=== PATIENT | female | born 1960 | race Hispanic/Latino ===

== ENCOUNTER 2016-12-31 12:17 | Emergency (ER) | payer MEDICAID ==
[2016-12-31 12:28] VITALS: BP 122/75; PULSE 65; RESP 18; TEMP 99.1; O2SAT 100
[2016-12-31] MEDS ORDERED: Sodium Chloride 0.9% 1,000 ML IV STA (12:43)
--- NOTE | 2016-12-31 13:22 | ED PDOC ---
HPI: Abdomen Time Seen by Provider: 12/31/16 12:43 Chief Complaint (Nursing): Abdominal Pain Chief Complaint (Provider): abd pain History Per: Patient History/Exam Limitations: no limitations Associated Symptoms: Loss Of Appetite, Back Pain. denies: Chest Pain Additional Complaint(s): 56yo F in ED for eval of RUQ/LUQ and epigastric pain with radiation to the back with associated nausea without vomiting and chills since this AM. no change in BM no fever no rash no surgical hx: hysterectomy. Abnormal Vaginal Bleeding: No Past Medical History Reviewed: Historical Data, Nursing Documentation, Vital Signs Vital Signs: Last Vital Signs Temp 99.1 F 12/31/16 12:26 Pulse 65 12/31/16 12:26 Resp 18 12/31/16 12:26 BP 122/75 12/31/16 12:26 Pulse Ox 100 12/31/16 13:25 - Medical History PMH: HTN, Hypercholesterolemia - Family History Family History: States: Unknown Family Hx - Immunization History Hx Influenza Vaccination: (unsure) Hx Pneumococcal Vaccination: (unsure) - Home Medications Home Medications: Ambulatory Orders Medication Instructions Recorded Famotidine [Pepcid] 20 mg PO BID #16 tab 12/31/16 - Allergies Allergies/Adverse Reactions: Allergies Allergy/AdvReac Type Severity Reaction Status Date / Time No Known Allergies Allergy Verified 08/18/15 23:23 Review of Systems ROS Statement: Except As Marked, All Systems Reviewed And Found Negative Constitutional: Positive for: Chills, Malaise. Negative for: Fever Gastrointestinal: Positive for: Nausea, Abdominal Pain. Negative for: Vomiting , Diarrhea Physical Exam - Reviewed Nursing Documentation Reviewed: Yes Vital Signs Reviewed: Yes - Physical Exam Appears: Positive for: Well, Non-toxic, No Acute Distress Head Exam: Positive for: ATRAUMATIC, NORMAL INSPECTION, NORMOCEPHALIC Skin: Positive for: Normal Color, Warm, DRY Eye Exam: Positive for: Normal appearance, EOMI, PERRL Cardiovascular/Chest: Positive for: Regular Rate, Rhythm Respiratory: Positive for: CNT, Normal Breath Sounds Gastrointestinal/Abdominal: Positive for: Normal Exam, Bowel Sounds, Soft, Tenderness (RUQ tenderness, epigastric tenderness and LUQ tenderness-band like.) Back: Positive for: Normal Inspection Extremity: Positive for: Normal ROM Neurologic/Psych: Positive for: Alert, Oriented - Laboratory Results Result Diagrams: 12/31/16 13:19 12/31/16 13:19 - ECG O2 Sat by Pulse Oximetry: 100 - Other Rad US RUQ X-Ray: Read By Radiologist (NAD) - CT Scan/US CT Other Rad Studies (CT/US): Radiology Report Reviewed (NAD) - Progress ED Course And Treament: r/o cholecysitis/pancreatitis. Orders Category Date Time Status COMP METABOLIC PANEL Stat Chem 12/31/16 12:55 Ordered LIPASE Stat Chem 12/31/16 12:55 Ordered CBC (WITH DIFFERENTIAL) Stat WEST 12/31/16 12:55 Ordered Ketorolac [Toradol] Med 12/31/16 13:05 Discontinued 30 mg .ROUTE .STK-MED ONE Ketorolac [Toradol] Med 12/31/16 12:43 Discontinued 30 mg IVP STAT STA Ondansetron [Zofran Inj] Med 12/31/16 13:05 Discontinued 4 mg .ROUTE .STK-MED ONE Ondansetron [Zofran Inj] Med 12/31/16 12:43 Discontinued 4 mg IVP STAT STA Sodium Chloride 0.9% 1,000 ml Med 12/31/16 12:43 Active IV 1,000 mls/hr BLOOD CULTURE Stat Micro 12/31/16 12:55 Ordered ABDOMEN LIMITED [US] Stat US 12/31/16 12:43 Ordered Medical Decision Making Medical Decision Making: dx: gastritis no significant findings on CT scan and US. PT with slightly elevated liver enzymes. PT pain has improved while in ED. pt will be advised to f.u with GI and d/c with Rx for pepcid for epigastric pain. Trop. is negative EKG reviewed by MD oliva Disposition - Clinical Impression Clinical Impression: Abdominal tenderness, Gastritis - Patient ED Disposition Is Patient to be Admitted: No Counseled Patient/Family Regarding: Studies Performed, Diagnosis, Need For Followup, Rx Given - Disposition Referrals: [facility] [Outside] [facility] [Outside] Disposition: Routine/Home Disposition Time: 16:13 Condition: STABLE Prescriptions: Famotidine [Pepcid] 20 mg PO BID #16 tab Instructions: Gastritis (ED) Print Language: TUNISIAN
[2016-12-31 13:39] LABS: BASO % 0.4 % (0.0-2.0); EOS # 0.1 K/uL (0.0-0.7); EOS % 0.5 % (0.0-4.0); HEMATOCRIT 41.5 % (34.0-47.0); LYMPH # 1.2 K/uL (1.0-4.3); LYMPH % 11.5 % (20.0-40.0); MEAN CELL VOLUME 90.1 fl (81.0-99.0); MEAN CORPUSCULAR HEMOGLOBIN 29.9 pg (27.0-31.0); MEAN CORPUSCULAR HGB CONC 33.2 g/dL (33.0-37.0); MEAN PLATELET VOLUME 9.3 fl (7.2-11.7); MONO # 0.3 K/uL (0.0-0.8); MONO % 3.1 % (0.0-10.0); NEUT # 9.1 K/uL (1.8-7.0); NEUT % 84.5 % (50.0-75.0); NRBC % 0.1 % (0.0-0.0); RED CELL DISTRIBUTION WIDTH 12.5 % (11.5-14.5); WHITE BLOOD COUNT 10.8 K/uL (4.8-10.8)
[2016-12-31 13:57] LABS: ALB/GLOB RATIO 1.3 (1.0-2.1); ALKALINE PHOSPHATASE 118 U/L (38-126); ALT/SGPT 66 U/L (9-52); AST/SGOT 102 U/L (14-36); BILIRUBIN,TOTAL 0.5 mg/dl (0.2-1.3); BLOOD UREA NITROGEN 17 mg/dl (7-17); CALCIUM 9.7 mg/dL (8.4-10.2); CARBON DIOXIDE 28 mmol/L (22-30); CHLORIDE 105 mmol/L (98-107); GFR AFRICAN-AMERICAN > 60; GLUCOSE,RANDOM 96 mg/dL (65-105); LIPASE 65 U/L (23-300); POTASSIUM 4.4 MMOL/L (3.6-5.0); SODIUM 142 mmol/l (132-148); TOTAL PROTEIN 8.1 G/DL (6.3-8.2)
--- NOTE | 2016-12-31 14:08 | US ---
HISTORY: RUQ pain with radiation to back COMPARISON: Correlation is made to CT scan of the abdomen and pelvis dated 02/28/2010. TECHNIQUE: Sonographic evaluation of the right upper quadrant of the abdomen. FINDINGS: LIVER: Measures 14.4 cm in length. Normal echogenicity of the liver parenchyma. No mass. No intrahepatic bile duct dilatation. GALLBLADDER: Unremarkable. No gallstones. COMMON BILE DUCT: Measures 3 mm. No stones. No dilatation. PANCREAS: Unremarkable as visualized. No mass. No ductal dilatation. RIGHT KIDNEY: Measures 8.0 x 4.1 x 4.3 cm in length. Normal echogenicity. No calculus, mass, or hydronephrosis. AORTA: No aneurysmal dilatation. IVC: Unremarkable. OTHER FINDINGS: None . IMPRESSION: Unremarkable right upper quadrant ultrasound.
[2016-12-31] MEDS ORDERED: Iohexol 300 100 ML IJ ONE (15:12)
[2016-12-31] MEDS ORDERED: Sodium Chloride 0.9% 50 ML IV ONE (15:12)
--- NOTE | 2016-12-31 15:52 | CT ---
PROCEDURE: CT Abdomen and Pelvis with contrast HISTORY: pt with persistent abd band like pain COMPARISON: CT scan of the abdomen pelvis dated 02/28/2010 TECHNIQUE: Contrast dose: 95 mL Omnipaque 300 Radiation dose: Total exam DLP = 817.9 mGy-cm. This CT exam was performed using one or more of the following dose reduction techniques: Automated exposure control, adjustment of the mA and/or kV according to patient size, and/or use of iterative reconstruction technique. FINDINGS: LOWER THORAX: Cardiomegaly. Bibasilar dependent atelectasis. LIVER: Unremarkable. No gross lesion or ductal dilatation. GALLBLADDER AND BILE DUCTS: Unremarkable. PANCREAS: Unremarkable. No gross lesion or ductal dilatation. SPLEEN: Unremarkable. ADRENALS: Unremarkable. No mass. KIDNEYS AND URETERS: Unremarkable. No hydronephrosis. No solid mass. VASCULATURE: Unremarkable. No aortic aneurysm. BOWEL: Colonic diverticulosis without diverticulitis. No obstruction. No gross mural thickening. APPENDIX: Normal appendix. PERITONEUM: Unremarkable. No free fluid. No free air. LYMPH NODES: Unremarkable. No enlarged lymph nodes. BLADDER: Unremarkable. REPRODUCTIVE: Uterus and bilateral adnexa not visualized. BONES: Pelvic degenerative changes. No acute fracture. OTHER FINDINGS: None. IMPRESSION: No acute abdominopelvic pathology.
--- NOTE | 2017-01-01 12:50 | CARD ---
APPROVED REPORT EKG Measurement Heart [id number] IN [id number] <Conclusion> Normal sinus rhythm Possible Left atrial enlargement Nonspecific ST and T wave abnormality Abnormal ECG
== END 2016-12-31 16:35 | disposition home or self-care (01) ==
LOC: H.ER 12:17
DX: K29.70 Gastritis, unspecified, without bleeding (principal); E78.00 Pure hypercholesterolemia, unspecified; I10 Essential (primary) hypertension
CPT/HCPCS: 74177; 76705; 80053; 83690; 85025; 87040; 93005; 96361; 96374; 96375; 99283; J1885; J2405; J7040; Q9967

== ENCOUNTER 2017-01-07 20:23 | Inpatient (IN) | payer MEDICAID ==
[2017-01-07] MEDS ORDERED: Morphine 4 MG/ML VIAL IVP STA (21:18)
[2017-01-07] MEDS ORDERED: DiphenhydrAMINE 50 mg/ml Inj IVP STA (21:18)
[2017-01-07] MEDS ORDERED: Sodium Chloride 0.9% 1,000 ML IV STA (21:18)
[2017-01-07] MEDS ORDERED: Morphine 4 MG/ML VIAL ONE (21:28)
[2017-01-07] MEDS ORDERED: DiphenhydrAMINE 50 mg/ml Inj ONE (21:28)
[2017-01-07 21:34] LABS: VENOUS BLOOD GAS BASE EXCESS -4.9 mmol/L (0.0-2.0); VENOUS BLOOD GAS PCO2 71 mmHg (40-60); VENOUS BLOOD PH 7.16 (7.32-7.43)
[2017-01-07] MEDS ORDERED: Iohexol 240 (50 ml) ONE (21:40)
[2017-01-07] MEDS: Iohexol 240 (50 ml) PO STA ×2 (21:43→22:30)
[2017-01-07 21:52] LABS: BASO % 0.5 % (0.0-2.0); EOS % 0.4 % (0.0-4.0); HEMATOCRIT 41.8 % (34.0-47.0); LYMPH # 0.9 K/uL (1.0-4.3); LYMPH % 9.1 % (20.0-40.0); MEAN CELL VOLUME 90.3 fl (81.0-99.0); MEAN CORPUSCULAR HGB CONC 33.2 g/dL (33.0-37.0); MEAN PLATELET VOLUME 9.8 fl (7.2-11.7); MONO # 0.4 K/uL (0.0-0.8); MONO % 4.6 % (0.0-10.0); NEUT # 8.1 K/uL (1.8-7.0); NEUT % 85.4 % (50.0-75.0); PLATELET COUNT 198 K/uL (130-400); RED CELL DISTRIBUTION WIDTH 13.1 % (11.5-14.5); WHITE BLOOD COUNT 9.5 K/uL (4.8-10.8)
[2017-01-07 22:01] LABS: PARTIAL THROMBOPLASTIN TIME 29.3 Seconds (25.6-37.1)
[2017-01-07 22:11] LABS: ALB/GLOB RATIO 1.3 (1.0-2.1); ALKALINE PHOSPHATASE 466 U/L (38-126); ALT/SGPT 648 U/L (9-52); AST/SGOT 671 U/L (14-36); BILIRUBIN,TOTAL 2.5 mg/dl (0.2-1.3); BLOOD UREA NITROGEN 12 mg/dl (7-17); CALCIUM 9.7 mg/dL (8.4-10.2); CARBON DIOXIDE 28 mmol/L (22-30); CHLORIDE 102 mmol/L (98-107); GFR AFRICAN-AMERICAN > 60; GLUCOSE,RANDOM 145 mg/dL (65-105); MAGNESIUM 1.9 MG/DL (1.6-2.3); PHOSPHOROUS 3.5 mg/dl (2.5-4.5); POTASSIUM 4.4 MMOL/L (3.6-5.0); SODIUM 140 mmol/l (132-148)
[2017-01-07 22:32] LABS: BASOPHIL 1 % (0-2); EOSINOPHIL 1 % (0-7); LARGE PLATELETS PRESENT; NEUTROPHIL 83 % (42-75); SMUDGE CELLS PRESENT; TOTAL CELLS COUNTED 100
--- NOTE | 2017-01-07 22:32 | ED PDOC ---
HPI: Abdomen Time Seen by Provider: 01/07/17 20:37 Chief Complaint (Nursing): GI Problem Chief Complaint (Provider): abdominal pain History Per: Patient Onset/Duration Of Symptoms: Days (14) Location Of Pain/Discomfort: Diffuse Quality Of Discomfort: "Pain" Associated Symptoms: Chills, Nausea, Vomiting, Diarrhea, Loss Of Appetite. denies: Constipation, Urinary Symptoms Exacerbating Factors: Movement, Deep Breaths Alleviating Factors: None Past Medical History Reviewed: Historical Data, Nursing Documentation, Vital Signs Vital Signs: Last Vital Signs Temp 98 F 01/12/17 10:00 Pulse 88 01/12/17 10:00 Resp 18 01/12/17 10:00 BP 132/80 01/12/17 10:00 Pulse Ox 99 01/12/17 10:00 - Medical History PMH: HTN, Hypercholesterolemia - Surgical History Other surgeries: Hysterectomy - Family History Family History: States: Hypertension - Social History Current smoker - smoking cessation education provided: No Alcohol: None - Immunization History Hx Influenza Vaccination: (unsure) Hx Pneumococcal Vaccination: (unsure) - Home Medications Home Medications: Ambulatory Orders Medication Instructions Recorded Famotidine [Pepcid] 20 mg PO BID #16 tab 12/31/16 Metoprolol Succinate [Toprol XL] 50 mg PO DAILY 01/08/17 Ranitidine HCl [Acid [employer]] 150 mg PO BID 01/08/17 amLODIPine [Norvasc] 5 mg PO DAILY 01/08/17 - Allergies Allergies/Adverse Reactions: Allergies Allergy/AdvReac Type Severity Reaction Status Date / Time No Known Allergies Allergy Verified 08/18/15 23:23 Review of Systems ROS Statement: Except As Marked, All Systems Reviewed And Found Negative (and as per HPI) Constitutional: Positive for: Chills. Negative for: Fever Gastrointestinal: Positive for: Nausea, Vomiting, Abdominal Pain, Diarrhea Physical Exam - Reviewed Nursing Documentation Reviewed: Yes Vital Signs Reviewed: Yes - Physical Exam Appears: Positive for: Uncomfortable, In Acute Distress Head Exam: Positive for: ATRAUMATIC, NORMOCEPHALIC Skin: Positive for: Warm, Dry Eye Exam: Positive for: EOMI, PERRL ENT: Positive for: Other (dry mucus membranes) Cardiovascular/Chest: Positive for: Regular Rate, Rhythm, Chest Non Tender Respiratory: Positive for: Normal Breath Sounds. Negative for: Wheezing Gastrointestinal/Abdominal: Positive for: Soft, Tenderness (diffuse and unable to localize). Negative for: Mass, Distended, Guarding, Rebound Back: Positive for: Normal Inspection. Negative for: Decreased ROM Extremity: Positive for: Normal ROM. Negative for: Deformity Lymphatic: Negative for: Adenopathy Neurologic/Psych: Positive for: Alert, Mood/Affect (anxious affect). Negative for: Motor/Sensory Deficits - Laboratory Results Result Diagrams: 01/12/17 06:05 01/12/17 06:05 - ECG ECG: Positive for: Interpreted By Tx ECG Rhythm: Positive for: Normal QRS, Normal ST Segment, Sinus Rhythm O2 Sat by Pulse Oximetry: 99 Pulse Ox Interpretation: Normal - Progress ED Course And Treament: Accession No. : [id number] Patient Name / ID : HESHAM RAO / [id number] Exam Date : 01/07/2017 22:43:47 ( Approved ) Study Comment : Sex / Age : F / 56Y Creator : YEIMY HARPER Dictator : [employer] Operator : Early Childhood : YEIMY HARPER Approver2 : Report Date : 01/08/2017 00:10:00 My Comment : [facility] Division of Radiology [address] [place] [address] Tel. no. Patient Name: MAIRA DAHL Pt. Address: [address] [place] [address] Rec #: [id number] [place] [address]: Benjamín SANTOS,Mala Koenig Pt CELL Order Location: Uziel : 1960 Female Age: 56 Order #: [id number] Reason for exam: Deranged LFTs Ultrasound GALLBLADDER HEPATIC Exam Date: 01/07/17 This imaging exam was performed at [facility] EXAM: US Abdomen Limited, Right Upper Quadrant CLINICAL HISTORY: 56 years old, female; Abnormal findings; Abnormal lab test; Elevated liver enzymes; Additional info: Deranged lfts TECHNIQUE: Real-time ultrasound of the right upper quadrant with image documentation. COMPARISON: No relevant prior studies available. FINDINGS: Liver: Unremarkable in echogenicity and size measuring 12.5 cm in longitudinal dimension. No intrahepatic bile duct dilation. Gallbladder: The gallbladder is distended without pericholecystic fluid or gallbladder wall thickening. An echogenic filling defect is identified deep to the gallbladder, possibly within the cystic duct, as described on the submitted images. Common bile duct: No stones. No dilation, measuring 3.5 mm. Pancreas: Visualization of the pancreas is limited by overlying bowel gas. Right kidney: Unremarkable in echogenicity and size measuring 8.6 x 4.2 x 3.9 cm. No obstructing stones. No solid mass. No hydronephrosis. IMPRESSION: Mild gallbladder distention with possible debris within the cystic duct, as detailed above. Limited evaluation of the pancreas, secondary to overlying bowel gas. Otherwise, unremarkable sonographic evaluation of the right upper quadrant, as detailed above. Dictated By: Yeimy Harper MD Dictated Date/Time: 01/08/179 Signed By: Yeimy Harper MD Date Signed: 9 Transcribed By: NELSON Transcribe Date/Time : 01/08/179 ERON/GUY Medical Decision Making Medical Decision Making: Gallstones in cystic duct and pancreatitis with derangement of transaminases, acute c/w labs from one week ago. Pt needs hospitalization for gallstone pancreatitis DW Surgery resident Dr Copeland and GI oncall Dr Cartagena who recommend HIDA scan when available Disposition - Clinical Impression Clinical Impression: Gallstone pancreatitis Counseled Patient/Family Regarding: Studies Performed, Diagnosis - Disposition Disposition Time: 23:00 Condition: FAIR - Pt Status Changed To: Hospital Disposition Of: Inpatient - Admit Certification Admit to Inpatient:: After my assessment, the patient will require hospitalization for at least two midnights. This is because of the severity of symptoms shown, intensity of services needed, and/or the medical risk in this patient being treated as an outpatient. - POA Present On Arrival: None
[2017-01-07] MEDS ORDERED: Piperacillin/Tazobact 3.375 GM in Sodium Chloride 0.9% 100 ML IVPB STA (23:32)
[2017-01-07 23:57] LABS: LIPASE 12170 U/L (23-300)
[2017-01-08] MEDS: Lactated Ringer's 2,000 ML IV STA ×2 (00:01→01:11)
--- NOTE | 2017-01-08 00:10 | US ---
EXAM: US Abdomen Limited, Right Upper Quadrant CLINICAL HISTORY: 56 years old, female; Abnormal findings; Abnormal lab test; Elevated liver enzymes; Additional info: Deranged lfts TECHNIQUE: Real-time ultrasound of the right upper quadrant with image documentation. COMPARISON: No relevant prior studies available. FINDINGS: Liver: Unremarkable in echogenicity and size measuring 12.5 cm in longitudinal dimension. No intrahepatic bile duct dilation. Gallbladder: The gallbladder is distended without pericholecystic fluid or gallbladder wall thickening. An echogenic filling defect is identified deep to the gallbladder, possibly within the cystic duct, as described on the submitted images. Common bile duct: No stones. No dilation, measuring 3.5 mm. Pancreas: Visualization of the pancreas is limited by overlying bowel gas. Right kidney: Unremarkable in echogenicity and size measuring 8.6 x 4.2 x 3.9 cm. No obstructing stones. No solid mass. No hydronephrosis. IMPRESSION: Mild gallbladder distention with possible debris within the cystic duct, as detailed above. Limited evaluation of the pancreas, secondary to overlying bowel gas. Otherwise, unremarkable sonographic evaluation of the right upper quadrant, as detailed above.
[2017-01-08] MEDS ORDERED: Morphine 4 MG/ML VIAL IVP PRN (00:53)
--- NOTE | 2017-01-08 00:58 | CP.PCM.CON ---
Addendum entered and electronically signed by Carolyn Copeland DO 01/08/17 12:59: MRCP findings sig for Acute pancreatitis and mild ascites. Diagnostic considerations include gallstone pancreatitis is clinically suspected. Dilated common bile duct with probable 3 mm distal common bile duct stone. Focal narrowing in the distal common bile duct/ampulla, possible stricture. Clinical correlation and followup recommended. Dilated cystic duct and cystic duct stone. Recommendation for EGD with GI prior to possible surgery. Ok for pt to have sips and chips as per Dr. Lara. Original Note: <Carolyn Copeland - Last Filed: 01/08/17 09:43> History of Present Illness - History of Present Illness History of Present Illness: General surgery consult for Dr. Lara-Carolyn Copeland, PGY-1 Pt S & E at bedside. Armenian speaking only. 56F w/PMH sig for HTN, HLD consulted for abdominal pain x 1 wk. Pt reports onset of diffuse abdominal pain a week ago , was seen in ED on Tuesday without significant findings. Pain is intermittent, radiates to back bilaterally, "strong", alleviated by pain medications. No aggravating factors identified. Admits to nausea, emesis x 5 (nb, bilious), subjective F & C, anorexia, hematuria, urinary frequency. Denies constipation, diarrhea, dysuria , ick contacts, hematochezia, melena, hematemesis, recent illness, other complaints. In ED GB U/S w/mild GB distention with possible debris w/in the cystic duct, lipase [id number], elevated LFTs & T bili of 2.5 PMH: HLD, HTN PSH: Hysterectomy All: NKDA SH: Denies ETOH, tobacco, or illicit drug use PMD: Louie Frederick Review of Systems - Review of Systems All systems: reviewed and no additional remarkable complaints except - Constitutional Constitutional: Chills, Fever. absent: Headache - EENT Eyes: absent: Change in Vision Ears: absent: Dizziness Nose/Mouth/Throat: absent: Sore Throat - Cardiovascular Cardiovascular: Chest Pain - Respiratory Respiratory: absent: Cough - Gastrointestinal Gastrointestinal: Abdominal Pain, Nausea, Vomiting. absent: Constipation, Diarrhea, Hematemesis, Hematochezia, Melena - Genitourinary Genitourinary: Hematuria, Urinary Frequency. absent: Dysuria - Musculoskeletal Musculoskeletal: Back Pain (bilaterally) - Integumentary Integumentary: absent: Change in Nails - Neurological Neurological: absent: Dizziness - Psychiatric Psychiatric: Change in Appetite (decreased) Past Patient History - Past Social History Alcohol: None - CARDIAC Hx Hypercholesterolemia: Yes Hx Hypertension: Yes - PSYCHIATRIC Hx Substance Use: No - SURGICAL HISTORY Hx Cardiac Catheterization: Yes Meds Allergies/Adverse Reactions: Allergies Allergy/AdvReac Type Severity Reaction Status Date / Time No Known Allergies Allergy Verified 08/18/15 23:23 - Medications Medications: Current Medications Famotidine (Pepcid) 20 mg IVP DAILY [facility] Hydromorphone HCl (Dilaudid) 1 mg IVP Q4 PRN PRN Reason: Pain, severe (8-10) Lactated Ringer's (Lactated Ringer's) 2,000 mls @ 1,000 mls/hr IV .Q2H ST[facility] Stop: 01/08/17 01:38 Last Admin: 01/08/17 00:01 Dose: 1,000 mls/hr Ketorolac Tromethamine (Toradol) 30 mg IVP Q6 PRN PRN Reason: Pain, Mild (1-3) Morphine Sulfate (Morphine) 4 mg IVP Q4 PRN PRN Reason: Pain, moderate (4-7) Ondansetron HCl (Zofran Inj) 4 mg IVP Q4 PRN PRN Reason: Nausea/Vomiting Physical Exam - Constitutional Appears: Non-toxic, No Acute Distress - Head Exam Head Exam: ATRAUMATIC, NORMAL INSPECTION, NORMOCEPHALIC - Eye Exam Eye Exam: EOMI, Normal appearance - ENT Exam ENT Exam: Mucous Membranes Moist, Normal Exam - Neck Exam Neck exam: Positive for: Full Rom, Normal Inspection - Respiratory Exam Respiratory Exam: Clear to Auscultation Bilateral, NORMAL BREATHING PATTERN - Cardiovascular Exam Cardiovascular Exam: REGULAR RHYTHM, +S1 - GI/Abdominal Exam GI & Abdominal Exam: Guarding, Hypoactive Bowel Sounds, Soft, Tenderness ( diffuse). absent: Distended, Firm, Rebound, Rigid - Extremities Exam Extremities exam: Positive for: normal inspection. Negative for: pedal edema - Back Exam Back exam: tenderness (Bilateral mid back) - Neurological Exam Neurological exam: Alert, CN II-XII Intact, Oriented x3 - Psychiatric Exam Psychiatric exam: Normal Affect, Normal Mood - Skin Skin Exam: Dry, Intact, Normal Color, Warm Results - Vital Signs Recent Vital Signs: Last Vital Signs Temp 98.2 F 01/07/17 20:32 Pulse 74 01/07/17 20:32 Resp 18 01/07/17 20:32 BP 140/78 01/07/17 20:32 Pulse Ox 99 01/08/17 00:43 - Labs Result Diagrams: 01/07/17 21:48 01/07/17 21:48 Labs: Laboratory Results - last 24 hr 01/07/17 01/07/17 01/07/17 21:25 21:48 21:48 WBC 9.5 RBC 4.63 Hgb 13.9 Hct 41.8 MCV 90.3 MCH 30.0 MCHC 33.2 RDW 13.1 Plt Count 198 MPV 9.8 Neut % (Auto) 85.4 H Lymph % (Auto) 9.1 L Towner % (Auto) 4.6 Eos % (Auto) 0.4 Baso % (Auto) 0.5 Neut # 8.1 H Lymph # 0.9 L Towner # 0.4 Eos # 0.0 Baso # 0.0 Neutrophils % (Manual) 83 H Band Neutrophils % 2 Lymphocytes % (Manual) 11 L Monocytes % (Manual) 2 Eosinophils % (Manual) 1 Basophils % (Manual) 1 Smudge Cells Present Platelet Estimate Normal Large Platelets Present Hypochromasia (manual) Slight PT INR APTT pO2 26 L VBG pH 7.16 L* VBG pCO2 71 H* VBG HCO3 19.3 VBG Total CO2 27.5 VBG O2 Sat (Calc) 48.0 VBG Base Excess -4.9 L VBG Potassium > 20.0 H* Sodium 126.0 L 140 Chloride 99.0 102 Glucose 148 H Lactate 1.0 FiO2 21.0 Crit Value Called To Dr cecil baptiste Crit Value Called By Rt Crit Value Read Back Y Blood Gas Notified Time 2133 Potassium 4.4 Carbon Dioxide 28 Anion Gap 14 BUN 12 Creatinine 0.7 Est GFR ( Amer) > 60 Est GFR (Non-Af Amer) > 60 Random Glucose 145 H Calcium 9.7 Phosphorus 3.5 Magnesium 1.9 Total Bilirubin 2.5 H AST 671 H D ALT 648 H D Alkaline Phosphatase 466 H D Total Protein 8.0 Albumin 4.5 Globulin 3.5 Albumin/Globulin Ratio 1.3 Lipase 85941 H Venous Blood Potassium > 20.0 H* 01/07/17 21:48 WBC RBC Hgb Hct MCV MCH MCHC RDW Plt Count MPV Neut % (Auto) Lymph % (Auto) Towner % (Auto) Eos % (Auto) Baso % (Auto) Neut # Lymph # Towner # Eos # Baso # Neutrophils % (Manual) Band Neutrophils % Lymphocytes % (Manual) Monocytes % (Manual) Eosinophils % (Manual) Basophils % (Manual) Smudge Cells Platelet Estimate Large Platelets Hypochromasia (manual) PT 13.1 INR 1.2 APTT 29.3 pO2 VBG pH VBG pCO2 VBG HCO3 VBG Total CO2 VBG O2 Sat (Calc) VBG Base Excess VBG Potassium Sodium Chloride Glucose Lactate FiO2 Crit Value Called To Crit Value Called By Crit Value Read Back Blood Gas Notified Time Potassium Carbon Dioxide Anion Gap BUN Creatinine Est GFR ( Amer) Est GFR (Non-Af Amer) Random Glucose Calcium Phosphorus Magnesium Total Bilirubin AST ALT Alkaline Phosphatase Total Protein Albumin Globulin Albumin/Globulin Ratio Lipase Venous Blood Potassium Assessment & Plan - Assessment and Plan (Free Text) Assessment: 56F w/pancreatitis, possibly due to gallstones Plan: NPO IVF Pain control MRCP GI/DVT ppx GI recs- HIDA, will FU Will follow DW attending Dinorah, PGY-1 - Date & Time Date: 01/08/17 Time: 00:56 <Hong Lara - Last Filed: 01/08/17 18:37> Meds - Medications Medications: Current Medications Famotidine (Pepcid) 20 mg IVP DAILY [facility] Last Admin: 01/08/17 09:36 Dose: 20 mg Hydromorphone HCl (Dilaudid) 1 mg IVP Q4 PRN PRN Reason: Pain, severe (8-10) Last Admin: 01/08/17 06:58 Dose: 1 mg Lactated Ringer's (Lactated Ringer's) 1,000 mls @ 250 mls/hr IV .Q4H [facility] Last Admin: 01/08/17 18:01 Dose: 250 mls/hr Ketorolac Tromethamine (Toradol) 30 mg IVP Q6 PRN PRN Reason: Pain, Mild (1-3) Last Admin: 01/08/17 14:31 Dose: 30 mg Morphine Sulfate (Morphine) 4 mg IVP Q4 PRN PRN Reason: Pain, moderate (4-7) Ondansetron HCl (Zofran Inj) 4 mg IVP Q4 PRN PRN Reason: Nausea/Vomiting Last Admin: 01/08/17 14:34 Dose: 4 mg Results - Vital Signs Recent Vital Signs: Last Vital Signs Temp 98.4 F 01/08/17 16:47 Pulse 74 01/08/17 16:47 Resp 20 01/08/17 16:47 BP 125/69 01/08/17 16:47 Pulse Ox 96 01/08/17 16:47 - Labs Result Diagrams: 01/07/17 21:48 01/07/17 21:48 Labs: Laboratory Results - last 24 hr 01/07/17 01/07/17 01/07/17 21:25 21:48 21:48 WBC 9.5 RBC 4.63 Hgb 13.9 Hct 41.8 MCV 90.3 MCH 30.0 MCHC 33.2 RDW 13.1 Plt Count 198 MPV 9.8 Neut % (Auto) 85.4 H Lymph % (Auto) 9.1 L Towner % (Auto) 4.6 Eos % (Auto) 0.4 Baso % (Auto) 0.5 Neut # 8.1 H Lymph # 0.9 L Towner # 0.4 Eos # 0.0 Baso # 0.0 Neutrophils % (Manual) 83 H Band Neutrophils % 2 Lymphocytes % (Manual) 11 L Monocytes % (Manual) 2 Eosinophils % (Manual) 1 Basophils % (Manual) 1 Smudge Cells Present Platelet Estimate Normal Large Platelets Present Hypochromasia (manual) Slight PT INR APTT pO2 26 L VBG pH 7.16 L* VBG pCO2 71 H* VBG HCO3 19.3 VBG Total CO2 27.5 VBG O2 Sat (Calc) 48.0 VBG Base Excess -4.9 L VBG Potassium > 20.0 H* Sodium 126.0 L 140 Chloride 99.0 102 Glucose 148 H Lactate 1.0 FiO2 21.0 Crit Value Called To Dr cecil baptiste Crit Value Called By Rt Crit Value Read Back Y Blood Gas Notified Time 2133 Potassium 4.4 Carbon Dioxide 28 Anion Gap 14 BUN 12 Creatinine 0.7 Est GFR ( Amer) > 60 Est GFR (Non-Af Amer) > 60 Random Glucose 145 H Calcium 9.7 Phosphorus 3.5 Magnesium 1.9 Total Bilirubin 2.5 H AST 671 H D ALT 648 H D Alkaline Phosphatase 466 H D Total Protein 8.0 Albumin 4.5 Globulin 3.5 Albumin/Globulin Ratio 1.3 Lipase 06753 H Venous Blood Potassium > 20.0 H* 01/07/17 21:48 WBC RBC Hgb Hct MCV MCH MCHC RDW Plt Count MPV Neut % (Auto) Lymph % (Auto) Towner % (Auto) Eos % (Auto) Baso % (Auto) Neut # Lymph # Towner # Eos # Baso # Neutrophils % (Manual) Band Neutrophils % Lymphocytes % (Manual) Monocytes % (Manual) Eosinophils % (Manual) Basophils % (Manual) Smudge Cells Platelet Estimate Large Platelets Hypochromasia (manual) PT 13.1 INR 1.2 APTT 29.3 pO2 VBG pH VBG pCO2 VBG HCO3 VBG Total CO2 VBG O2 Sat (Calc) VBG Base Excess VBG Potassium Sodium Chloride Glucose Lactate FiO2 Crit Value Called To Crit Value Called By Crit Value Read Back Blood Gas Notified Time Potassium Carbon Dioxide Anion Gap BUN Creatinine Est GFR ( Amer) Est GFR (Non-Af Amer) Random Glucose Calcium Phosphorus Magnesium Total Bilirubin AST ALT Alkaline Phosphatase Total Protein Albumin Globulin Albumin/Globulin Ratio Lipase Venous Blood Potassium Attending/Attestation - Attestation I have personally seen and examined this patient.: Yes I have fully participated in the care of the patient.: Yes I have reviewed all pertinent clinical information: Yes Notes (Text): Pt was seen and examined at bedside Agree with above note and assessment Pt with Chroninc Cholecystitis with GS Pancreatitis RUQ tenderness Labs and radiology reviewed MRCP reviewed Ass: GS Pancreatitis, Chronic Cholecystitis Plan: GI consult for ERCP Consent NPO, IVF IV antibiotics Plan d.w pt in detail Risk and benefit explained in detail.
[2017-01-08] MEDS: Lactated Ringer's 1,000 ML IV SCH ×7 (02:18→21:45)
[2017-01-08] MEDS: HYDROmorphone 0.5 mg/0.5 ml ISec IVP PRN (06:58)
[2017-01-08] MEDS ORDERED: Albuterol-Ipratrop 3 mg / 0.5 (3 ml) UD INH STA (07:23)
[2017-01-08] MEDS ORDERED: Albuterol-Ipratrop 3 mg / 0.5 (3 ml) UD INH PRN (07:24)
[2017-01-08] MEDS: Sodium Chloride 0.9% 1,000 ML IV SCH ×2 (09:40→10:30)
--- NOTE | 2017-01-08 10:18 | CARD ---
APPROVED REPORT EKG Measurement Heart [id number] <Conclusion> Normal sinus rhythm Nonspecific T wave abnormality Abnormal ECG
--- NOTE | 2017-01-08 11:41 | MRI ---
EXAM: MR Abdomen Without Intravenous Contrast CLINICAL HISTORY: 56 years old, female; Pain; Abdominal pain; Epigastric; Additional info: Biliary evaluation, poss gallstone pancreatitis TECHNIQUE: Multiplanar magnetic resonance images of the abdomen without intravenous contrast. MRCP of the abdomen. COMPARISON: No relevant prior studies available. FINDINGS: Lower thorax: Trace bilateral pleural effusions with mild bibasilar atelectasis/infiltrate. Liver: There is a small amount of perihepatic fluid. No mass. The Gallbladder and bile ducts: Distended gallbladder without gallbladder wall edema. No gallstones. The cystic duct is dilated measuring 9 mm. There is a filling defect in the cystic duct measuring 7 mm suspicious for cystic duct stone. Image 27 series 5. Image 59 series 10. There is a tiny filling defect in the distal common bile duct measuring 3 mm suspicious for distal common bile duct stone. Image 37 series 5. Image 67 series 10. The common bile duct is mildly dilated measuring 8 mm. There is focal narrowing at the distal common bile duct/ampulla. Stricture is not noted. No definite mass. Image 66 series 10. Pancreas: The pancreatic duct mildly prominent measuring 2 mm. There is moderate peripancreatic inflammatory stranding and fluid adjacent to the tail of the pancreas, consistent with moderate acute pancreatitis. Free fluid extends along the anterior pararenal space and extends to the lower abdomen bilaterally. Spleen: There is a small amount of perisplenic fluid. No splenomegaly. Adrenals: Unremarkable. No mass. Kidneys and ureters: Bilateral renal cysts. No hydronephrosis. Stomach and bowel: Unremarkable. No obstruction. Vasculature: Unremarkable. No abdominal aortic aneurysm. Lymph nodes: Unremarkable. No enlarged lymph nodes. IMPRESSION: Acute pancreatitis and mild ascites. Diagnostic considerations include gallstone pancreatitis is clinically suspected. Dilated common bile duct with probable 3 mm distal common bile duct stone. Focal narrowing in the distal common bile duct/ampulla, possible stricture. Clinical correlation and followup recommended. Dilated cystic duct and cystic duct stone. Bilateral renal cysts. No followup. Trace bilateral pleural effusions and bibasilar atelectasis/infiltrate.
--- NOTE | 2017-01-08 13:11 | RAD ---
HISTORY: vomiting COMPARISON: Comparison chest dated 02/28/2010. FINDINGS: LUNGS: Poor inspiration with low lung volumes, crowded bronchovascular markings and mild bibasilar atelectasis left greater than right. Developing left lower lobe infiltrate could be excluded with followup radiographs. PLEURA: No significant pleural effusion identified, no pneumothorax apparent. CARDIOVASCULAR: Normal. OSSEOUS STRUCTURES: No significant abnormalities. VISUALIZED UPPER ABDOMEN: Normal. OTHER FINDINGS: None. IMPRESSION: Poor inspiration with low lung volumes, crowded bronchovascular markings and mild bibasilar atelectasis left greater than right. Developing left lower lobe infiltrate could be excluded with followup radiographs.
--- NOTE | 2017-01-08 18:13 | HP ---
CHIEF COMPLAINT: Abdominal pain. HISTORY OF PRESENT ILLNESS: This is a 56-year-old female who is having abdominal pain on and off for about 2 weeks which did not improve, so the patient came to the emergency room and was admitted for further management. REVIEW OF SYSTEMS: Positive for abdominal pain and nausea. Review of systems was also positive for loss of appetite and diarrhea. Review of systems was otherwise negative for headache, dizziness, syncope, loss of consciousness, chest pain, shortness of breath, constipation, any new joint or extremity pain. Review of systems of all other organ systems is unremarkable. PAST MEDICAL HISTORY: Significant for hypertension and elevated cholesterol. PAST SURGICAL HISTORY: Remarkable for hysterectomy. PERSONAL HISTORY: The patient is currently nonsmoker, nondrinker. No substance abuse. MEDICATIONS: The patient is on metoprolol, amlodipine, and H2 blockers for her stomach. ALLERGIES: THE PATIENT IS NOT ALLERGIC TO ANY MEDICATION. FAMILY HISTORY: Noncontributory. PHYSICAL EXAMINATION: GENERAL: A well-built, well-nourished, 56-year-old female, in mild discomfort due to abdominal pain, but in acute respiratory distress. VITAL SIGNS: Temperature 98.7, pulse 71, respirations 19, and blood pressure 121/75. HEENT: Pupils reacting to light. No JVD. No thyromegaly. No lymphadenopathy. No nystagmus. Normocephalic and atraumatic skull. HEART: S1 and S2, normal and regular. No significant murmur, gallop, or rub is heard. LUNGS: Show good bilateral air exchange. No rales or rhonchi. ABDOMEN: Diffusely tender, more so in epigastric, but no sign of any acute abdomen. No guarding. No rigidity. No rebound. Bowel sounds are present and normal. EXTREMITIES: No edema. No calf swelling. No tenderness. No acute ischemia. CENTRAL NERVOUS SYSTEM: Essentially unchanged. There is no sign of any acute gross focal motor or sensory neurological deficit. DIAGNOSTIC DATA: Available diagnostic data reviewed. WBC 9.5, hemoglobin 13.9, hematocrit 41.8, and platelets 198. PT 13.1 and PTT 29.3. Lactic acid is 1.0. Sodium 140, potassium 4.0, chloride 102, bicarb 28, BUN 12, and creatinine 0.7. AST 671, alkaline phosphatase is 648. Lipase level is 12,170. Gallbladder ultrasound shows gallbladder sludge and distended gallbladder. Surgical consult noted and appreciated. Chest x-ray is clear. ADMITTING IMPRESSION: Acute pancreatitis, acute cholecystitis, hypertension, elevated cholesterol, and dyspepsia. PLAN: As ordered. Case and plan discussed with the patient. Loi Martinez MD
--- NOTE | 2017-01-08 22:56 | CP.PCM.CON ---
History of Present Illness - History of Present Illness History of Present Illness: 56 yo female c/o abdominal pain x 1 week. Has been having nausea and vomiting Was seen with similar sx. in ER about one week ago and there no significant findings then. Only other significant medical issues are hypertension and hyperlipidemia. Review of Systems - Constitutional Constitutional: absent: Chills - EENT Eyes: absent: Blurred Vision Ears: absent: Decreased Hearing Nose/Mouth/Throat: absent: Epistaxis - Cardiovascular Cardiovascular: absent: Chest Pain - Respiratory Respiratory: absent: Cough - Gastrointestinal Gastrointestinal: As Per HPI - Genitourinary Genitourinary: absent: Change in Urinary Stream Past Patient History - Past Medical History & Family History Past Medical History?: Yes - Past Social History Alcohol: None - CARDIAC Hx Hypercholesterolemia: Yes Hx Hypertension: Yes - PULMONARY Hx Respiratory Disorders: No - NEUROLOGICAL Hx Neurological Disorder: No - HEENT Hx HEENT Problems: No - RENAL Hx Chronic Kidney Disease: No - ENDOCRINE/METABOLIC Hx Endocrine Disorders: No - HEMATOLOGICAL/ONCOLOGICAL Hx Blood Disorders: No Hx AIDS: No Hx Human Immunodeficiency Virus (HIV): No - INTEGUMENTARY Hx Dermatological Problems: No - MUSCULOSKELETAL/RHEUMATOLOGICAL Hx Musculoskeletal Disorders: No Hx Falls: No - GASTROINTESTINAL Hx Gastrointestinal Disorders: No - GENITOURINARY/GYNECOLOGICAL Hx Genitourinary Disorders: No - PSYCHIATRIC Hx Substance Use: No - SURGICAL HISTORY Hx Cardiac Catheterization: Yes - ANESTHESIA Hx Anesthesia: Yes Hx Anesthesia Reactions: No Hx Malignant Hyperthermia: No Meds Allergies/Adverse Reactions: Allergies Allergy/AdvReac Type Severity Reaction Status Date / Time No Known Allergies Allergy Verified 08/18/15 23:23 - Medications Medications: Current Medications Famotidine (Pepcid) 20 mg IVP DAILY [facility] Last Admin: 01/08/17 09:36 Dose: 20 mg Hydromorphone HCl (Dilaudid) 1 mg IVP Q4 PRN PRN Reason: Pain, severe (8-10) Last Admin: 01/08/17 06:58 Dose: 1 mg Lactated Ringer's (Lactated Ringer's) 1,000 mls @ 250 mls/hr IV .Q4H [facility] Last Admin: 01/08/17 21:45 Dose: 250 mls/hr Ketorolac Tromethamine (Toradol) 30 mg IVP Q6 PRN PRN Reason: Pain, Mild (1-3) Last Admin: 01/08/17 14:31 Dose: 30 mg Morphine Sulfate (Morphine) 4 mg IVP Q4 PRN PRN Reason: Pain, moderate (4-7) Ondansetron HCl (Zofran Inj) 4 mg IVP Q4 PRN PRN Reason: Nausea/Vomiting Last Admin: 01/08/17 14:34 Dose: 4 mg Physical Exam - Constitutional Appears: No Acute Distress - Head Exam Head Exam: ATRAUMATIC - Eye Exam Eye Exam: Normal appearance - ENT Exam ENT Exam: Mucous Membranes Moist - Respiratory Exam Respiratory Exam: Clear to Auscultation Bilateral - Cardiovascular Exam Cardiovascular Exam: REGULAR RHYTHM, +S1, +S2 - GI/Abdominal Exam GI & Abdominal Exam: Normal Bowel Sounds, Soft, Tenderness Additional comments: moderate RUQ tenderness Results - Vital Signs Recent Vital Signs: Last Vital Signs Temp 98.4 F 01/08/17 16:47 Pulse 74 01/08/17 16:47 Resp 20 01/08/17 16:47 BP 125/69 01/08/17 16:47 Pulse Ox 96 01/08/17 16:47 - Labs Result Diagrams: 01/07/17 21:48 01/07/17 21:48 Labs: Laboratory Results - last 24 hr 01/07/17 21:48 Lipase 98585 H - Imaging and Cardiology US - abdomen Status: Report reviewed by me MRI - abdomen Status: Image reviewed by me, Report reviewed by me Assessment & Plan (1) Gallstone pancreatitis Assessment and Plan: Patient feels better today with ongoing pain but less intense. Yesterday Lipase was >12,000. Presentation c/w gallstone pancreatitis. MRCP shows CBD fullness with possible narrowing at the ampulla, 3 mm CBD stone, and small cystic duct stone. Repeat labs in AM. Diet advanced to clear liquids. ERCP Tuesday. Appreciate input from surgery Status: Acute
[2017-01-09] MEDS: Lactated Ringer's 1,000 ML IV SCH ×5 (02:00→23:40)
[2017-01-09 07:35] LABS: HEMATOCRIT 36.7 % (34.0-47.0); MEAN CORPUSCULAR HEMOGLOBIN 30.5 pg (27.0-31.0); MEAN CORPUSCULAR HGB CONC 33.9 g/dL (33.0-37.0); WHITE BLOOD COUNT 7.9 K/uL (4.8-10.8)
[2017-01-09 07:44] LABS: ALB/GLOB RATIO 1.2 (1.0-2.1); ALKALINE PHOSPHATASE 389 U/L (38-126); ALT/SGPT 363 U/L (9-52); AMYLASE 609 U/L (30-110); AST/SGOT 144 U/L (14-36); BILIRUBIN,TOTAL 1.1 mg/dl (0.2-1.3); BLOOD UREA NITROGEN 8 mg/dl (7-17); CALCIUM 9.1 mg/dL (8.4-10.2); CARBON DIOXIDE 27 mmol/L (22-30); CHLORIDE 107 mmol/L (98-107); GFR AFRICAN-AMERICAN > 60; GLUCOSE,RANDOM 76 mg/dL (65-105); LIPASE 1203 U/L (23-300); POTASSIUM 3.5 MMOL/L (3.6-5.0); SODIUM 143 mmol/l (132-148); TOTAL PROTEIN 6.9 G/DL (6.3-8.2)
--- NOTE | 2017-01-09 11:58 | CP.PCM.PN ---
<Larry Corral - Last Filed: 01/09/17 11:58> Subjective - Date & Time of Evaluation Date of Evaluation: 01/09/17 Time of Evaluation: 11:56 - Subjective Subjective: general Surgery progress note for Dr. Lara This patient was seen and examined this Am at bedside no acute events reported overnight. She reports that she is pasing gas however no bowel movements. She reports that her pain is improving. Objective - Vital Signs/Intake and Output Vital Signs (last 24 hours): Temp Pulse Resp BP Pulse Ox 99.2 F 81 20 128/75 96 01/09/17 08:24 01/09/17 08:24 01/09/17 08:24 01/09/17 08:24 01/09/17 08:24 - Medications Medications: Current Medications Famotidine (Pepcid) 20 mg IVP DAILY [facility] Last Admin: 01/09/17 09:00 Dose: 20 mg Hydromorphone HCl (Dilaudid) 1 mg IVP Q4 PRN PRN Reason: Pain, severe (8-10) Last Admin: 01/08/17 06:58 Dose: 1 mg Lactated Ringer's (Lactated Ringer's) 1,000 mls @ 250 mls/hr IV .Q4H [facility] Last Admin: 01/09/17 09:24 Dose: 250 mls/hr Ketorolac Tromethamine (Toradol) 30 mg IVP Q6 PRN PRN Reason: Pain, Mild (1-3) Last Admin: 01/09/17 11:36 Dose: 30 mg Morphine Sulfate (Morphine) 4 mg IVP Q4 PRN PRN Reason: Pain, moderate (4-7) Ondansetron HCl (Zofran Inj) 4 mg IVP Q4 PRN PRN Reason: Nausea/Vomiting Last Admin: 01/08/17 14:34 Dose: 4 mg - Labs Labs: 01/09/17 06:30 01/09/17 06:30 PT 13.1 Seconds (9.8-13.1) 01/07/17 21:48 INR 1.2 (0.9-1.2) 01/07/17 21:48 APTT 29.3 Seconds (25.6-37.1) 01/07/17 21:48 - Constitutional Appears: Non-toxic, No Acute Distress - Head Exam Head Exam: ATRAUMATIC, NORMOCEPHALIC - Eye Exam Eye Exam: EOMI, Normal appearance - ENT Exam ENT Exam: Mucous Membranes Moist, Normal Exam - Respiratory Exam Respiratory Exam: NORMAL BREATHING PATTERN - Cardiovascular Exam Cardiovascular Exam: REGULAR RHYTHM - GI/Abdominal Exam GI & Abdominal Exam: Soft. absent: Guarding, Rigid, Tenderness - Neurological Exam Neurological Exam: Alert, Awake - Psychiatric Exam Psychiatric exam: Normal Affect, Normal Mood - Skin Skin Exam: Dry, Intact Assessment and Plan - Assessment and Plan (Free Text) Assessment: This is a 56F with a PMH of HTN and HLD who presents with gallstone pancreatitis , Lipase, and LFTs trending down Plan: Diet Per GI Continue IVF Followup ERCP Will plan for OR later this week Will Discuss with Dr. Marco Corral PGY2 <Hong Lara - Last Filed: 01/09/17 22:31> Objective - Vital Signs/Intake and Output Vital Signs (last 24 hours): Temp Pulse Resp BP Pulse Ox 98.5 F 22 L 18 131/79 99 01/09/17 16:53 01/09/17 16:53 01/09/17 16:53 01/09/17 16:53 01/09/17 16:53 - Medications Medications: Current Medications Acetaminophen (Tylenol 325mg Tab) 650 mg PO Q4 PRN PRN Reason: Pain, moderate (4-7) Last Admin: 01/09/17 21:12 Dose: 650 mg Famotidine (Pepcid) 20 mg IVP DAILY [facility] Last Admin: 01/09/17 09:00 Dose: 20 mg Hydromorphone HCl (Dilaudid) 1 mg IVP Q4 PRN PRN Reason: Pain, severe (8-10) Last Admin: 01/08/17 06:58 Dose: 1 mg Lactated Ringer's (Lactated Ringer's) 1,000 mls @ 125 mls/hr IV .Q8H [facility] Last Admin: 01/09/17 14:11 Dose: 125 mls/hr Ketorolac Tromethamine (Toradol) 30 mg IVP Q6 PRN PRN Reason: Pain, Mild (1-3) Last Admin: 01/09/17 11:36 Dose: 30 mg Morphine Sulfate (Morphine) 4 mg IVP Q4 PRN PRN Reason: Pain, moderate (4-7) Ondansetron HCl (Zofran Inj) 4 mg IVP Q4 PRN PRN Reason: Nausea/Vomiting Last Admin: 01/08/17 14:34 Dose: 4 mg - Labs Labs: 01/09/17 06:30 01/09/17 06:30 PT 13.1 Seconds (9.8-13.1) 01/07/17 21:48 INR 1.2 (0.9-1.2) 01/07/17 21:48 APTT 29.3 Seconds (25.6-37.1) 01/07/17 21:48 Attending/Attestation - Attestation I have personally seen and examined this patient.: Yes I have fully participated in the care of the patient.: Yes I have reviewed all pertinent clinical information, including history, physical exam and plan: Yes Notes (Text): Pt was seen and examined at bedside Agree with above note and assessment Pt with improving GS pancreatitis Lipase is trending down ERCP tomorrow NPO, IVF c.w current mx Plan d.w pt in detail. Risk and benefit explained in detail.
[2017-01-09] MEDS: HYDROmorphone 0.5 mg/0.5 ml ISec IVP PRN (23:40)
[2017-01-10 06:08] LABS: BASO # 0.1 K/uL (0.0-0.2); BASO % 0.7 % (0.0-2.0); EOS # 0.1 K/uL (0.0-0.7); EOS % 1.5 % (0.0-4.0); HEMATOCRIT 35.2 % (34.0-47.0); LYMPH # 1.3 K/uL (1.0-4.3); LYMPH % 18.4 % (20.0-40.0); MEAN CELL VOLUME 91.5 fl (81.0-99.0); MEAN CORPUSCULAR HEMOGLOBIN 30.3 pg (27.0-31.0); MEAN CORPUSCULAR HGB CONC 33.1 g/dL (33.0-37.0); MEAN PLATELET VOLUME 9.5 fl (7.2-11.7); MONO # 0.5 K/uL (0.0-0.8); MONO % 6.5 % (0.0-10.0); NEUT # 5.3 K/uL (1.8-7.0); NEUT % 72.9 % (50.0-75.0); NRBC % 0.1 % (0.0-0.0); RED CELL DISTRIBUTION WIDTH 13.1 % (11.5-14.5); WHITE BLOOD COUNT 7.2 K/uL (4.8-10.8)
[2017-01-10 06:20] LABS: ALB/GLOB RATIO 1.1 (1.0-2.1); ALKALINE PHOSPHATASE 329 U/L (38-126); ALT/SGPT 253 U/L (9-52); AST/SGOT 86 U/L (14-36); BILIRUBIN,TOTAL 0.9 mg/dl (0.2-1.3); BLOOD UREA NITROGEN 6 mg/dl (7-17); CALCIUM 8.8 mg/dL (8.4-10.2); CARBON DIOXIDE 29 mmol/L (22-30); CHLORIDE 105 mmol/L (98-107); GFR AFRICAN-AMERICAN > 60; GLUCOSE,RANDOM 101 mg/dL (65-105); POTASSIUM 3.9 MMOL/L (3.6-5.0); SODIUM 143 mmol/l (132-148); TOTAL PROTEIN 6.6 G/DL (6.3-8.2)
[2017-01-10] MEDS: Lactated Ringer's 1,000 ML IV SCH ×3 (06:32→22:23)
--- NOTE | 2017-01-10 08:23 | CP.PCM.PN ---
<Carolyn Copeland - Last Filed: 01/10/17 09:21> Subjective - Date & Time of Evaluation Date of Evaluation: 01/10/17 Time of Evaluation: 07:30 - Subjective Subjective: General surgery progress note for Dr. Lara-Carolyn Copeland, PGY-1 Pt S & E at bedside. Pt reports ab pain is resolved, still with some nausea. Now with a YANG. For ERCP today with GI. Denies emesis, F & C, other complaints. Objective - Vital Signs/Intake and Output Vital Signs (last 24 hours): Temp Pulse Resp BP Pulse Ox 98.6 F 78 20 124/68 94 L 01/10/17 08:16 01/10/17 08:16 01/10/17 08:16 01/10/17 08:16 01/10/17 08:16 - Medications Medications: Current Medications Acetaminophen (Tylenol 325mg Tab) 650 mg PO Q4 PRN PRN Reason: Pain, moderate (4-7) Last Admin: 01/09/17 21:12 Dose: 650 mg Famotidine (Pepcid) 20 mg IVP DAILY [facility] Last Admin: 01/09/17 09:00 Dose: 20 mg Hydromorphone HCl (Dilaudid) 1 mg IVP Q4 PRN PRN Reason: Pain, severe (8-10) Last Admin: 01/09/17 23:40 Dose: 1 mg Lactated Ringer's (Lactated Ringer's) 1,000 mls @ 125 mls/hr IV .Q8H [facility] Last Admin: 01/10/17 06:32 Dose: Not Given Ketorolac Tromethamine (Toradol) 30 mg IVP Q6 PRN PRN Reason: Pain, Mild (1-3) Last Admin: 01/09/17 11:36 Dose: 30 mg Morphine Sulfate (Morphine) 4 mg IVP Q4 PRN PRN Reason: Pain, moderate (4-7) Ondansetron HCl (Zofran Inj) 4 mg IVP Q4 PRN PRN Reason: Nausea/Vomiting Last Admin: 01/08/17 14:34 Dose: 4 mg - Labs Labs: 01/10/17 05:25 01/10/17 05:25 PT 13.1 Seconds (9.8-13.1) 01/07/17 21:48 INR 1.2 (0.9-1.2) 01/07/17 21:48 APTT 29.3 Seconds (25.6-37.1) 01/07/17 21:48 - Constitutional Appears: Non-toxic, No Acute Distress - Head Exam Head Exam: ATRAUMATIC, NORMAL INSPECTION, NORMOCEPHALIC - Eye Exam Eye Exam: EOMI, Normal appearance - ENT Exam ENT Exam: Mucous Membranes Moist, Normal Exam - Neck Exam Neck Exam: Full ROM, Normal Inspection - Respiratory Exam Respiratory Exam: Clear to Ausculation Bilateral, NORMAL BREATHING PATTERN - Cardiovascular Exam Cardiovascular Exam: REGULAR RHYTHM, +S1, +S2 - GI/Abdominal Exam GI & Abdominal Exam: Soft, Normal Bowel Sounds. absent: Distended, Firm, Guarding, Rigid, Tenderness, Hernia, Mass - Extremities Exam Extremities Exam: Normal Inspection - Neurological Exam Neurological Exam: Alert, Awake, CN II-XII Intact, Oriented x3 - Psychiatric Exam Psychiatric exam: Normal Affect, Normal Mood - Skin Skin Exam: Dry, Intact, Normal Color, Warm Assessment and Plan - Assessment and Plan (Free Text) Assessment: 56F w/gallstone pancreatitis, much improved- for ERCP today with GI Plan: FU ERCP results Cont pain meds Cont IVF Will plan for OR Tuesday Will need cardiac clearance Consent in chart DW attending Dinorah, PGY-1 <Hong Lara - Last Filed: 01/11/17 16:30> Objective - Vital Signs/Intake and Output Vital Signs (last 24 hours): Temp Pulse Resp BP Pulse Ox 97.8 F 79 18 139/82 96 01/11/17 15:56 01/11/17 15:56 01/11/17 15:56 01/11/17 15:56 01/11/17 15:56 - Medications Medications: Current Medications Acetaminophen (Tylenol 325mg Tab) 650 mg PO Q4 PRN PRN Reason: Pain, moderate (4-7) Last Admin: 01/10/17 21:36 Dose: 650 mg Acetaminophen (Tylenol 325mg Tab) 650 mg PO Q6 PRN PRN Reason: Headache Amlodipine Besylate (Norvasc) 5 mg PO DAILY [facility] Last Admin: 01/11/17 09:34 Dose: 5 mg Famotidine (Pepcid) 20 mg IVP DAILY [facility] Last Admin: 01/11/17 09:35 Dose: 20 mg Hydromorphone HCl (Dilaudid) 1 mg IVP Q4 PRN PRN Reason: Pain, severe (8-10) Last Admin: 01/09/17 23:40 Dose: 1 mg Lactated Ringer's (Lactated Ringer's) 1,000 mls @ 125 mls/hr IV .Q8H [facility] Last Admin: 01/10/17 22:23 Dose: Not Given Ketorolac Tromethamine (Toradol) 30 mg IVP Q6 PRN PRN Reason: Pain, Mild (1-3) Last Admin: 01/09/17 11:36 Dose: 30 mg Metoprolol Succinate (Toprol Xl) 50 mg PO DAILY [facility] Last Admin: 01/11/17 11:29 Dose: 50 mg Morphine Sulfate (Morphine) 4 mg IVP Q4 PRN PRN Reason: Pain, moderate (4-7) Ondansetron HCl (Zofran Inj) 4 mg IVP Q4 PRN PRN Reason: Nausea/Vomiting Last Admin: 01/08/17 14:34 Dose: 4 mg - Labs Labs: 01/11/17 05:35 01/11/17 05:35 PT 13.1 Seconds (9.8-13.1) 01/07/17 21:48 INR 1.2 (0.9-1.2) 01/07/17 21:48 APTT 29.3 Seconds (25.6-37.1) 01/07/17 21:48 Attending/Attestation - Attestation I have personally seen and examined this patient.: Yes I have fully participated in the care of the patient.: Yes I have reviewed all pertinent clinical information, including history, physical exam and plan: Yes Notes (Text): Pt was seen and examined at bedside Agree with above note and assessment Pt with GS pancreatitis and CBD stone C/w Mild abdominal pain, tenderness Pt is refusing ERCP c/w IV antibiotics Pt is tolerating liquid diet c.w current mx Plan d.w pt in detail Risk and benefit explained in detail.
[2017-01-10] MEDS ORDERED: Iohexol 240 (50 ml) ONE (09:35)
[2017-01-10] MEDS ORDERED: Glucagon Recombinant 1 mg Inj ONE (09:36)
[2017-01-10] MEDS ORDERED: Indomethacin 50 MG Suppository PR ONE ×2 (09:36→14:00)
--- NOTE | 2017-01-10 09:47 | PN ---
DATE: 01/09/2017 SUBJECTIVE: The patient is seen and examined. Interim events noted. Consults noted and appreciated. Surgery and Gastroenterology followup and interventions noted and appreciated. MRCP results reviewed. The patient still complains of abdominal pain, although is much better than before. No chest pain or shortness of breath. No nausea, vomiting, diarrhea. The patient was able to tolerate some liquid diet. PHYSICAL EXAMINATION: GENERAL: The patient is in no acute distress. VITAL SIGNS: Stable. HEART: S1 and S2, normal and regular. LUNGS: Good bilateral air exchange. ABDOMEN: The patient has still minimal epigastric tenderness, although it is much better than before. No sign of acute abdomen. No guarding. No rigidity. No rebound. Bowel sounds are plus and normal. EXTREMITIES: No edema. No calf swelling. No tenderness. No acute ischemia. CENTRAL NERVOUS SYSTEM: Essentially unchanged. LABORATORY DATA: MRCP shows gallstone pancreatitis. ASSESSMENT AND PLAN: Overall, the patient is clinically improving. The patient is for possible endoscopic retrograde cholangiopancreatography tomorrow. Plan as ordered. Case and plan discussed with the patient. Loi Martinez MD
[2017-01-10] MEDS ORDERED: Lactated Ringer's 1,000 ML IV ONE ×2 (12:13)
[2017-01-10] MEDS ORDERED: Midazolam 2 MG/2 ML VIAL ONE (12:56)
[2017-01-10] MEDS ORDERED: Propofol 10 mg/ml Inj (20 ML) ONE (12:56)
--- NOTE | 2017-01-10 13:19 | CP.PCM.PN ---
Subjective - Date & Time of Evaluation Date of Evaluation: 01/10/17 Time of Evaluation: 13:13 - Subjective Subjective: Patient brought to endoscopy for ERCP. She is currently pain free. Objective - Vital Signs/Intake and Output Vital Signs (last 24 hours): Temp Pulse Resp BP Pulse Ox 99.5 F 96 H 20 157/86 H 98 01/10/17 12:14 01/10/17 12:14 01/10/17 12:14 01/10/17 12:14 01/10/17 12:14 Intake and Output: 01/10/17 01/10/17 06:59 18:59 Intake Total 50 Balance 50 - Medications Medications: Current Medications Acetaminophen (Tylenol 325mg Tab) 650 mg PO Q4 PRN PRN Reason: Pain, moderate (4-7) Last Admin: 01/09/17 21:12 Dose: 650 mg Famotidine (Pepcid) 20 mg IVP DAILY [facility] Last Admin: 01/10/17 08:57 Dose: 20 mg Hydromorphone HCl (Dilaudid) 1 mg IVP Q4 PRN PRN Reason: Pain, severe (8-10) Last Admin: 01/09/17 23:40 Dose: 1 mg Lactated Ringer's (Lactated Ringer's) 1,000 mls @ 125 mls/hr IV .Q8H [facility] Last Admin: 01/10/17 06:32 Dose: Not Given Indomethacin (Indocin Suppository) 100 mg HI ONCE ONE Stop: 01/10/17 14:01 Ketorolac Tromethamine (Toradol) 30 mg IVP Q6 PRN PRN Reason: Pain, Mild (1-3) Last Admin: 01/09/17 11:36 Dose: 30 mg Morphine Sulfate (Morphine) 4 mg IVP Q4 PRN PRN Reason: Pain, moderate (4-7) Ondansetron HCl (Zofran Inj) 4 mg IVP Q4 PRN PRN Reason: Nausea/Vomiting Last Admin: 01/08/17 14:34 Dose: 4 mg - Labs Labs: 01/10/17 05:25 01/10/17 05:25 PT 13.1 Seconds (9.8-13.1) 01/07/17 21:48 INR 1.2 (0.9-1.2) 01/07/17 21:48 APTT 29.3 Seconds (25.6-37.1) 01/07/17 21:48 - Head Exam Head Exam: ATRAUMATIC - Eye Exam Eye Exam: Normal appearance - ENT Exam ENT Exam: Mucous Membranes Moist - Neck Exam Neck Exam: Full ROM - Respiratory Exam Respiratory Exam: NORMAL BREATHING PATTERN - Cardiovascular Exam Cardiovascular Exam: REGULAR RHYTHM, +S1, +S2 - GI/Abdominal Exam GI & Abdominal Exam: Soft, Normal Bowel Sounds. absent: Tenderness Assessment and Plan (1) Gallstone pancreatitis Assessment & Plan: Currently asymptomatic. Procedure explained to patient through an pump erector helper and using a diagram. Among risks discussed was 5-10 % risk of pancreatitis. She is unsure if she wants the procedure and wants to consult with family. Will return her to floor on bland low fat diet. Status: Acute
--- NOTE | 2017-01-10 14:35 | PN ---
ADDENDUM PHYSICAL EXAMINATION: GENERAL: The patient is in no acute distress. VITAL SIGNS: Stable. HEART: S1 and S2, normal and regular. LUNGS: Good bilateral air exchange. ABDOMEN: Soft, nontender. No organomegaly. No fluid. No sign of acute abdomen. No guarding. No rigidity. No rebound. Bowel sounds are present. EXTREMITIES: No edema. No calf swelling. No tenderness. No acute ischemia. CENTRAL NERVOUS SYSTEM: Essentially unchanged. DIAGNOSTIC DATA: Available diagnostic data reviewed. ASSESSMENT AND PLAN: Overall, the patient's general medical condition is stable. Lipase level is 1200 and decreasing significantly . Plan as ordered. Case and plan discussed with the patient. Loi Martinez MD
[2017-01-11 06:12] LABS: MEAN CELL VOLUME 90.7 fl (81.0-99.0); MEAN CORPUSCULAR HEMOGLOBIN 30.2 pg (27.0-31.0); MEAN CORPUSCULAR HGB CONC 33.2 g/dL (33.0-37.0); RED CELL DISTRIBUTION WIDTH 13.1 % (11.5-14.5); WHITE BLOOD COUNT 5.9 K/uL (4.8-10.8)
[2017-01-11 06:25] LABS: ALB/GLOB RATIO 1.2 (1.0-2.1); ALKALINE PHOSPHATASE 282 U/L (38-126); ALT/SGPT 181 U/L (9-52); AMYLASE 134 U/L (30-110); AST/SGOT 41 U/L (14-36); BILIRUBIN,TOTAL 0.8 mg/dl (0.2-1.3); BLOOD UREA NITROGEN 9 mg/dl (7-17); CARBON DIOXIDE 31 mmol/L (22-30); CHLORIDE 104 mmol/L (98-107); GFR AFRICAN-AMERICAN > 60; GLUCOSE,RANDOM 106 mg/dL (65-105); LIPASE 231 U/L (23-300); POTASSIUM 3.5 MMOL/L (3.6-5.0); SODIUM 144 mmol/l (132-148); TOTAL PROTEIN 6.6 G/DL (6.3-8.2)
[2017-01-11] MEDS ORDERED: Potassium Chloride 20 mEq ER Tab PO ONE (06:45)
--- NOTE | 2017-01-11 08:39 | PN ---
DATE: 01/10/2017 SUBJECTIVE: The patient is seen and examined. Interim events noted. Consults noted and appreciated. Surgical followup and intervention noted and appreciated. Patient remains in regular medical floor. Feels much better. Abdominal pain improved. No chest pain or shortness of breath. Loi Martinez MD
--- NOTE | 2017-01-11 09:20 | CP.PCM.PN ---
<Carolyn Copeland - Last Filed: 01/11/17 09:21> Subjective - Date & Time of Evaluation Date of Evaluation: 01/11/17 Time of Evaluation: 09:16 - Subjective Subjective: General surgery progress note for Dr. Lara-Carolyn Copeland, PGY-1 Pt S & E at bedside. Pt reports severe headache. Denies N & V, F & C, ab pain. Yesterday pt refused ERCP per GI- spoke with pt and daughter extensively today about need for ERCP prior to surgery. Pt now amenable to ERCP. Objective - Vital Signs/Intake and Output Vital Signs (last 24 hours): Temp Pulse Resp BP Pulse Ox 98.9 F 73 18 138/82 96 01/11/17 08:12 01/11/17 08:12 01/11/17 08:12 01/11/17 08:12 01/11/17 08:12 - Medications Medications: Current Medications Acetaminophen (Tylenol 325mg Tab) 650 mg PO Q4 PRN PRN Reason: Pain, moderate (4-7) Last Admin: 01/10/17 21:36 Dose: 650 mg Amlodipine Besylate (Norvasc) 5 mg PO DAILY [facility] Famotidine (Pepcid) 20 mg IVP DAILY [facility] Last Admin: 01/10/17 08:57 Dose: 20 mg Hydromorphone HCl (Dilaudid) 1 mg IVP Q4 PRN PRN Reason: Pain, severe (8-10) Last Admin: 01/09/17 23:40 Dose: 1 mg Lactated Ringer's (Lactated Ringer's) 1,000 mls @ 125 mls/hr IV .Q8H [facility] Last Admin: 01/10/17 22:23 Dose: Not Given Ketorolac Tromethamine (Toradol) 30 mg IVP Q6 PRN PRN Reason: Pain, Mild (1-3) Last Admin: 01/09/17 11:36 Dose: 30 mg Metoprolol Succinate (Toprol Xl) 50 mg PO DAILY [facility] Morphine Sulfate (Morphine) 4 mg IVP Q4 PRN PRN Reason: Pain, moderate (4-7) Ondansetron HCl (Zofran Inj) 4 mg IVP Q4 PRN PRN Reason: Nausea/Vomiting Last Admin: 01/08/17 14:34 Dose: 4 mg - Labs Labs: 01/11/17 05:35 01/11/17 05:35 PT 13.1 Seconds (9.8-13.1) 01/07/17 21:48 INR 1.2 (0.9-1.2) 01/07/17 21:48 APTT 29.3 Seconds (25.6-37.1) 01/07/17 21:48 - Constitutional Appears: Non-toxic, No Acute Distress - Head Exam Head Exam: ATRAUMATIC, NORMAL INSPECTION, NORMOCEPHALIC - Eye Exam Eye Exam: EOMI, Normal appearance - ENT Exam ENT Exam: Mucous Membranes Moist, Normal Exam - Neck Exam Neck Exam: Full ROM, Normal Inspection - Respiratory Exam Respiratory Exam: Clear to Ausculation Bilateral, NORMAL BREATHING PATTERN - Cardiovascular Exam Cardiovascular Exam: REGULAR RHYTHM, +S1, +S2 - GI/Abdominal Exam GI & Abdominal Exam: Soft, Normal Bowel Sounds. absent: Distended, Firm, Guarding, Rigid, Tenderness, Rebound - Extremities Exam Extremities Exam: Full ROM, Normal Inspection - Neurological Exam Neurological Exam: Alert, Awake, CN II-XII Intact, Oriented x3 - Psychiatric Exam Psychiatric exam: Normal Affect, Normal Mood - Skin Skin Exam: Dry, Intact, Normal Color, Warm Assessment and Plan - Assessment and Plan (Free Text) Assessment: 56F w/gallstone pancreatitis Plan: FU ERCP tomorrow Cont pain meds Cont IVF Will plan for OR after cardiac clearance and ERCP Consent in chart DW attending Dinorah, PGY-1 <Hong Lara - Last Filed: 01/11/17 17:03> Objective - Vital Signs/Intake and Output Vital Signs (last 24 hours): Temp Pulse Resp BP Pulse Ox 97.8 F 79 18 139/82 96 01/11/17 15:56 01/11/17 15:56 01/11/17 15:56 01/11/17 15:56 01/11/17 15:56 - Medications Medications: Current Medications Acetaminophen (Tylenol 325mg Tab) 650 mg PO Q4 PRN PRN Reason: Pain, moderate (4-7) Last Admin: 01/10/17 21:36 Dose: 650 mg Acetaminophen (Tylenol 325mg Tab) 650 mg PO Q6 PRN PRN Reason: Headache Amlodipine Besylate (Norvasc) 5 mg PO DAILY [facility] Last Admin: 01/11/17 09:34 Dose: 5 mg Famotidine (Pepcid) 20 mg IVP DAILY [facility] Last Admin: 01/11/17 09:35 Dose: 20 mg Hydromorphone HCl (Dilaudid) 1 mg IVP Q4 PRN PRN Reason: Pain, severe (8-10) Last Admin: 01/09/17 23:40 Dose: 1 mg Lactated Ringer's (Lactated Ringer's) 1,000 mls @ 125 mls/hr IV .Q8H [facility] Last Admin: 01/10/17 22:23 Dose: Not Given Ketorolac Tromethamine (Toradol) 30 mg IVP Q6 PRN PRN Reason: Pain, Mild (1-3) Last Admin: 01/09/17 11:36 Dose: 30 mg Metoprolol Succinate (Toprol Xl) 50 mg PO DAILY [facility] Last Admin: 01/11/17 11:29 Dose: 50 mg Morphine Sulfate (Morphine) 4 mg IVP Q4 PRN PRN Reason: Pain, moderate (4-7) Ondansetron HCl (Zofran Inj) 4 mg IVP Q4 PRN PRN Reason: Nausea/Vomiting Last Admin: 01/08/17 14:34 Dose: 4 mg - Labs Labs: 01/11/17 05:35 01/11/17 05:35 PT 13.1 Seconds (9.8-13.1) 01/07/17 21:48 INR 1.2 (0.9-1.2) 01/07/17 21:48 APTT 29.3 Seconds (25.6-37.1) 01/07/17 21:48 Attending/Attestation - Attestation I have personally seen and examined this patient.: Yes I have fully participated in the care of the patient.: Yes I have reviewed all pertinent clinical information, including history, physical exam and plan: Yes Notes (Text): Pt was seen and examined at bedside Agree with above note and assessment Pt with GS pancreatitis with cholelithiasis ERCP tomorrow Lap amol tomorrow Consent NPO, IVF C/w c.w current mx Plan d.w pt in detail Risk and benefit explained in detail.
--- NOTE | 2017-01-11 09:29 | CP.PCM.PN ---
Subjective - Date & Time of Evaluation Date of Evaluation: 01/11/17 Time of Evaluation: 07:10 - Subjective Subjective: Patient seen and examined in MedSurg unit this morning with Dr. Martinez Patient denies N/V, and abdominal pain at this evaluation. She declined the ERCP yesterday by GI, Dr. Cartagena. Has been afebrile, but with elevated BP and c/o headaches and had an episode of nosebleeds this morning. No evidence of nose bleeding at this time. Denies Cp, SOB, dizziness, acute changes in vision. Objective - Vital Signs/Intake and Output Vital Signs (last 24 hours): Temp Pulse Resp BP Pulse Ox 98.9 F 73 18 138/82 96 01/11/17 08:12 01/11/17 08:12 01/11/17 08:12 01/11/17 08:12 01/11/17 08:12 - Medications Medications: Current Medications Acetaminophen (Tylenol 325mg Tab) 650 mg PO Q4 PRN PRN Reason: Pain, moderate (4-7) Last Admin: 01/10/17 21:36 Dose: 650 mg Amlodipine Besylate (Norvasc) 5 mg PO DAILY [facility] Famotidine (Pepcid) 20 mg IVP DAILY [facility] Last Admin: 01/10/17 08:57 Dose: 20 mg Hydromorphone HCl (Dilaudid) 1 mg IVP Q4 PRN PRN Reason: Pain, severe (8-10) Last Admin: 01/09/17 23:40 Dose: 1 mg Lactated Ringer's (Lactated Ringer's) 1,000 mls @ 125 mls/hr IV .Q8H [facility] Last Admin: 01/10/17 22:23 Dose: Not Given Ketorolac Tromethamine (Toradol) 30 mg IVP Q6 PRN PRN Reason: Pain, Mild (1-3) Last Admin: 01/09/17 11:36 Dose: 30 mg Metoprolol Succinate (Toprol Xl) 50 mg PO DAILY [facility] Morphine Sulfate (Morphine) 4 mg IVP Q4 PRN PRN Reason: Pain, moderate (4-7) Ondansetron HCl (Zofran Inj) 4 mg IVP Q4 PRN PRN Reason: Nausea/Vomiting Last Admin: 01/08/17 14:34 Dose: 4 mg - Labs Labs: 01/11/17 05:35 01/11/17 05:35 PT 13.1 Seconds (9.8-13.1) 01/07/17 21:48 INR 1.2 (0.9-1.2) 01/07/17 21:48 APTT 29.3 Seconds (25.6-37.1) 01/07/17 21:48 - Constitutional Appears: No Acute Distress - ENT Exam ENT Exam: Mucous Membranes Moist - Respiratory Exam Respiratory Exam: Clear to Ausculation Bilateral, NORMAL BREATHING PATTERN - Cardiovascular Exam Cardiovascular Exam: REGULAR RHYTHM, +S1, +S2 - GI/Abdominal Exam GI & Abdominal Exam: Soft, Normal Bowel Sounds. absent: Distended, Guarding, Rigid, Tenderness - Extremities Exam Extremities Exam: Normal Inspection. absent: Calf Tenderness, Pedal Edema - Neurological Exam Neurological Exam: Alert, Awake, Oriented x3 Assessment and Plan (1) Gallstone pancreatitis Assessment & Plan: Improving, asymptomatic at this time Lipase wnl today LFTs trending down diet will be advance as per GI and Surgery recommendations pending of ERCP procedure prior to elective cholecystectomy Cardiology clearance for possible OR Cardiology consult appreciated, Dr. Peralta Surgical team plan is OR after ERCP and Cardio clearance NPO after midnight today for ERCP tomorrow morning by Dr. Cartagena IV fluids while NPO c/w pain control PRN Status: Acute (2) Hypertension Assessment & Plan: resume home meds c/w amlodipine and Metoprolol Status: Chronic (3) DVT prophylaxis Assessment & Plan: active ambulation SCDs while in bed Will consider Lovenox, awaiting for OR Status: Acute
[2017-01-11] MEDS: Metoprolol Succinate 50 mg XL Tab PO SCH (11:29)
--- NOTE | 2017-01-11 12:20 | CP.PCM.PN ---
Subjective - Date & Time of Evaluation Date of Evaluation: 01/11/17 Time of Evaluation: 12:17 - Subjective Subjective: patient better clinically though still somewhat elevated. Objective - Vital Signs/Intake and Output Vital Signs (last 24 hours): Temp Pulse Resp BP Pulse Ox 98.9 F 73 18 138/82 96 01/11/17 08:12 01/11/17 11:29 01/11/17 08:12 01/11/17 11:29 01/11/17 08:12 - Medications Medications: Current Medications Acetaminophen (Tylenol 325mg Tab) 650 mg PO Q4 PRN PRN Reason: Pain, moderate (4-7) Last Admin: 01/10/17 21:36 Dose: 650 mg Acetaminophen (Tylenol 325mg Tab) 650 mg PO Q6 PRN PRN Reason: Headache Amlodipine Besylate (Norvasc) 5 mg PO DAILY [facility] Last Admin: 01/11/17 09:34 Dose: 5 mg Famotidine (Pepcid) 20 mg IVP DAILY [facility] Last Admin: 01/11/17 09:35 Dose: 20 mg Hydromorphone HCl (Dilaudid) 1 mg IVP Q4 PRN PRN Reason: Pain, severe (8-10) Last Admin: 01/09/17 23:40 Dose: 1 mg Lactated Ringer's (Lactated Ringer's) 1,000 mls @ 125 mls/hr IV .Q8H [facility] Last Admin: 01/10/17 22:23 Dose: Not Given Ketorolac Tromethamine (Toradol) 30 mg IVP Q6 PRN PRN Reason: Pain, Mild (1-3) Last Admin: 01/09/17 11:36 Dose: 30 mg Metoprolol Succinate (Toprol Xl) 50 mg PO DAILY [facility] Last Admin: 01/11/17 11:29 Dose: 50 mg Morphine Sulfate (Morphine) 4 mg IVP Q4 PRN PRN Reason: Pain, moderate (4-7) Ondansetron HCl (Zofran Inj) 4 mg IVP Q4 PRN PRN Reason: Nausea/Vomiting Last Admin: 01/08/17 14:34 Dose: 4 mg - Labs Labs: 01/11/17 05:35 01/11/17 05:35 PT 13.1 Seconds (9.8-13.1) 01/07/17 21:48 INR 1.2 (0.9-1.2) 01/07/17 21:48 APTT 29.3 Seconds (25.6-37.1) 01/07/17 21:48 - Constitutional Appears: No Acute Distress - Head Exam Head Exam: ATRAUMATIC - Eye Exam Eye Exam: Normal appearance - ENT Exam ENT Exam: Normal Exam - Respiratory Exam Respiratory Exam: Clear to Ausculation Bilateral - Cardiovascular Exam Cardiovascular Exam: REGULAR RHYTHM, +S1, +S2 - GI/Abdominal Exam GI & Abdominal Exam: Soft. absent: Tenderness Assessment and Plan (1) Gallstone pancreatitis Assessment & Plan: Clinically better. Narrowing at ampulla and small CBD stone seen on MRCP . Patient after consulting with family now agrees to ERCP. Will schedule for tomorrow. Maintain IV hydration. May be on bland diet today. NPO past midnight Status: Acute
--- NOTE | 2017-01-11 17:28 | CARD ---
APPROVED REPORT EXAM: Two-dimensional and M-mode echocardiogram with Doppler and color Doppler. Other Information Quality : GoodRhythm : NSR INDICATION Pre-Op 2D DIMENSIONS IVSd1.00 (0.7-1.1cm)LVDd4.45 (3.9-5.9cm) LVOT Diameter1.81 (1.8-2.4cm)PWd0.76 (0.7-1.1cm) IVSs0.89 (0.8-1.2cm)LVDs3.58 (2.5-4.0cm) FS (%) 19.6 %PWs0.75 (0.8-1.2cm) M-Mode DIMENSIONS Left Atrium (MM)3.65 (2.5-4.0cm)IVSd0.97 (0.7-1.1cm) Aortic Root3.15 (2.2-3.7cm)LVDd5.06 (4.0-5.6cm) Aortic Cusp Exc.1.76 (1.5-2.0cm)PWd1.03 (0.7-1.1cm) IVSs1.47 cmFS (%) 42 % LVDs2.94 (2.0-3.8cm)PWs1.24 cm Mitral Valve MV E Srgldjmw48.4cm/sMV DECEL [id number] A Gmmqknmn10.0cm/s MV DYJ06xnO/A ratio1.0MVA (PHT)3.98cm2 TDI Lateral E' Peak V11.98cm/sMedial E' Peak V6.76cm/sE/Lateral E'6.0 E/Medial E'10.6 Pulmonary Valve PV Peak Kcealrhh542.1cm/s Tricuspid Valve TR Peak Yqquctki040jx/sRAP EFAMLQKG64xjSnIT Peak Gr.25mmHg [id number] LEFT VENTRICLE The left ventricle is normal size. There is normal left ventricular wall thickness. The left ventricular function is normal. The left ventricular ejection fraction is - 70%. There is normal LV segmental wall motion. Transmitral Doppler flow pattern is Grade I-abnormal relaxation pattern. No left ventricle thrombus noted on this study. There is no ventricular septal defect visualized. There is no left ventricular aneurysm. There is no mass noted in the left ventricle. RIGHT VENTRICLE The right ventricle is normal size. There is normal right ventricular wall thickness. The right ventricular systolic function is normal. ATRIA The left atrium size is normal. The right atrium size is normal. The interatrial septum is intact with no evidence for an atrial septal defect. AORTIC VALVE The aortic valve is normal in structure. No aortic regurgitation is present. There is no aortic valvular stenosis. MITRAL VALVE The mitral valve is normal in structure. There is no evidence of mitral valve prolapse. There is no mitral valve stenosis. Mitral regurgitation is mild. TRICUSPID VALVE The tricuspid valve is normal in structure. There is mild to moderate tricuspid regurgitation. Right ventricular systolic pressure is estimated at 35 mmHg. There is no tricuspid valve prolapse or vegetation. There is no tricuspid valve stenosis. PULMONIC VALVE The pulmonary valve is normal in structure. There is no pulmonic valvular regurgitation. GREAT VESSELS The aortic root is normal in size. The IVC is normal in size and collapses >50% with inspiration. PERICARDIAL EFFUSION The pericardium appears normal. There is no pleural effusion. <Conclusion> The left ventricle is normal in size and wall thickness. The left ventricular function is normal. The left ventricular ejection fraction is - 70%. The left atrium, right ventricle and right atrium are normal in size. The mitral, aortic and tricuspid valves are normal. There is mild mitral regurgitation and mild to moderate tricuspid regurgitation.
--- NOTE | 2017-01-11 21:33 | CP.PCM.CON ---
Past Patient History - Past Medical History & Family History Past Medical History?: Yes - Past Social History Alcohol: None - CARDIAC Hx Hypercholesterolemia: Yes Hx Hypertension: Yes - PULMONARY Hx Respiratory Disorders: No - NEUROLOGICAL Hx Neurological Disorder: No - HEENT Hx HEENT Problems: No - RENAL Hx Chronic Kidney Disease: No - ENDOCRINE/METABOLIC Hx Endocrine Disorders: No - HEMATOLOGICAL/ONCOLOGICAL Hx Blood Disorders: No Hx AIDS: No Hx Human Immunodeficiency Virus (HIV): No - INTEGUMENTARY Hx Dermatological Problems: No - MUSCULOSKELETAL/RHEUMATOLOGICAL Hx Musculoskeletal Disorders: No Hx Falls: No - GASTROINTESTINAL Hx Gastrointestinal Disorders: No - GENITOURINARY/GYNECOLOGICAL Hx Genitourinary Disorders: No - PSYCHIATRIC Hx Substance Use: No - SURGICAL HISTORY Hx Cardiac Catheterization: Yes - ANESTHESIA Hx Anesthesia: Yes Hx Anesthesia Reactions: No Hx Malignant Hyperthermia: No Meds Allergies/Adverse Reactions: Allergies Allergy/AdvReac Type Severity Reaction Status Date / Time No Known Allergies Allergy Verified 08/18/15 23:23 - Medications Medications: Current Medications Acetaminophen (Tylenol 325mg Tab) 650 mg PO Q4 PRN PRN Reason: Pain, moderate (4-7) Last Admin: 01/10/17 21:36 Dose: 650 mg Acetaminophen (Tylenol 325mg Tab) 650 mg PO Q6 PRN PRN Reason: Headache Amlodipine Besylate (Norvasc) 5 mg PO DAILY [facility] Last Admin: 01/11/17 09:34 Dose: 5 mg Famotidine (Pepcid) 20 mg IVP DAILY [facility] Last Admin: 01/11/17 09:35 Dose: 20 mg Hydromorphone HCl (Dilaudid) 1 mg IVP Q4 PRN PRN Reason: Pain, severe (8-10) Last Admin: 01/09/17 23:40 Dose: 1 mg Lactated Ringer's (Lactated Ringer's) 1,000 mls @ 125 mls/hr IV .Q8H [facility] Ketorolac Tromethamine (Toradol) 30 mg IVP Q6 PRN PRN Reason: Pain, Mild (1-3) Last Admin: 01/09/17 11:36 Dose: 30 mg Metoprolol Succinate (Toprol Xl) 50 mg PO DAILY [facility] Last Admin: 01/11/17 11:29 Dose: 50 mg Morphine Sulfate (Morphine) 4 mg IVP Q4 PRN PRN Reason: Pain, moderate (4-7) Ondansetron HCl (Zofran Inj) 4 mg IVP Q4 PRN PRN Reason: Nausea/Vomiting Last Admin: 01/08/17 14:34 Dose: 4 mg Results - Vital Signs Recent Vital Signs: Last Vital Signs Temp 97.8 F 01/11/17 15:56 Pulse 79 01/11/17 15:56 Resp 18 01/11/17 15:56 BP 139/82 01/11/17 15:56 Pulse Ox 96 01/11/17 15:56 - Labs Result Diagrams: 01/11/17 05:35 01/11/17 05:35 Labs: Laboratory Results - last 24 hr 01/11/17 01/11/17 05:35 05:35 WBC 5.9 RBC 3.96 Hgb 12.0 Hct 36.0 MCV 90.7 MCH 30.2 MCHC 33.2 RDW 13.1 Plt Count 169 Sodium 144 Potassium 3.5 L Chloride 104 Carbon Dioxide 31 H Anion Gap 13 BUN 9 Creatinine 0.7 Est GFR ( Amer) > 60 Est GFR (Non-Af Amer) > 60 Random Glucose 106 H Calcium 9.0 Total Bilirubin 0.8 AST 41 H D ALT 181 H D Alkaline Phosphatase 282 H Total Protein 6.6 Albumin 3.6 Globulin 3.0 Albumin/Globulin Ratio 1.2 Amylase 134 H D Lipase 231
--- NOTE | 2017-01-11 21:33 | CP.PCM.CON ---
History of Present Illness - History of Present Illness History of Present Illness: patient seen/examined. full consult to follow. Patient has possible gallstone pancreatitis scheduled for ERCP, likely cholecystectomy. EKG reveals normal sinus rhythm, and no ischemia. Echocardiogram reveals normal left ventricular function and no valvular stenosis. Patient is at acceptable cardiovascular risk for the planned procedure. There is no cardiovascular contraindication. Past Patient History - Past Medical History & Family History Past Medical History?: Yes - Past Social History Alcohol: None - CARDIAC Hx Hypercholesterolemia: Yes Hx Hypertension: Yes - PULMONARY Hx Respiratory Disorders: No - NEUROLOGICAL Hx Neurological Disorder: No - HEENT Hx HEENT Problems: No - RENAL Hx Chronic Kidney Disease: No - ENDOCRINE/METABOLIC Hx Endocrine Disorders: No - HEMATOLOGICAL/ONCOLOGICAL Hx Blood Disorders: No Hx AIDS: No Hx Human Immunodeficiency Virus (HIV): No - INTEGUMENTARY Hx Dermatological Problems: No - MUSCULOSKELETAL/RHEUMATOLOGICAL Hx Musculoskeletal Disorders: No Hx Falls: No - GASTROINTESTINAL Hx Gastrointestinal Disorders: No - GENITOURINARY/GYNECOLOGICAL Hx Genitourinary Disorders: No - PSYCHIATRIC Hx Substance Use: No - SURGICAL HISTORY Hx Cardiac Catheterization: Yes - ANESTHESIA Hx Anesthesia: Yes Hx Anesthesia Reactions: No Hx Malignant Hyperthermia: No Meds Allergies/Adverse Reactions: Allergies Allergy/AdvReac Type Severity Reaction Status Date / Time No Known Allergies Allergy Verified 08/18/15 23:23 - Medications Medications: Current Medications Acetaminophen (Tylenol 325mg Tab) 650 mg PO Q4 PRN PRN Reason: Pain, moderate (4-7) Last Admin: 01/10/17 21:36 Dose: 650 mg Acetaminophen (Tylenol 325mg Tab) 650 mg PO Q6 PRN PRN Reason: Headache Amlodipine Besylate (Norvasc) 5 mg PO DAILY [facility] Last Admin: 01/11/17 09:34 Dose: 5 mg Famotidine (Pepcid) 20 mg IVP DAILY [facility] Last Admin: 01/11/17 09:35 Dose: 20 mg Hydromorphone HCl (Dilaudid) 1 mg IVP Q4 PRN PRN Reason: Pain, severe (8-10) Last Admin: 01/09/17 23:40 Dose: 1 mg Lactated Ringer's (Lactated Ringer's) 1,000 mls @ 125 mls/hr IV .Q8H [facility] Ketorolac Tromethamine (Toradol) 30 mg IVP Q6 PRN PRN Reason: Pain, Mild (1-3) Last Admin: 01/09/17 11:36 Dose: 30 mg Metoprolol Succinate (Toprol Xl) 50 mg PO DAILY [facility] Last Admin: 01/11/17 11:29 Dose: 50 mg Morphine Sulfate (Morphine) 4 mg IVP Q4 PRN PRN Reason: Pain, moderate (4-7) Ondansetron HCl (Zofran Inj) 4 mg IVP Q4 PRN PRN Reason: Nausea/Vomiting Last Admin: 01/08/17 14:34 Dose: 4 mg Results - Vital Signs Recent Vital Signs: Last Vital Signs Temp 97.8 F 01/11/17 15:56 Pulse 79 01/11/17 15:56 Resp 18 01/11/17 15:56 BP 139/82 01/11/17 15:56 Pulse Ox 96 01/11/17 15:56 - Labs Result Diagrams: 01/11/17 05:35 01/11/17 05:35 Labs: Laboratory Results - last 24 hr 01/11/17 01/11/17 05:35 05:35 WBC 5.9 RBC 3.96 Hgb 12.0 Hct 36.0 MCV 90.7 MCH 30.2 MCHC 33.2 RDW 13.1 Plt Count 169 Sodium 144 Potassium 3.5 L Chloride 104 Carbon Dioxide 31 H Anion Gap 13 BUN 9 Creatinine 0.7 Est GFR ( Amer) > 60 Est GFR (Non-Af Amer) > 60 Random Glucose 106 H Calcium 9.0 Total Bilirubin 0.8 AST 41 H D ALT 181 H D Alkaline Phosphatase 282 H Total Protein 6.6 Albumin 3.6 Globulin 3.0 Albumin/Globulin Ratio 1.2 Amylase 134 H D Lipase 231
[2017-01-12] MEDS: Metoprolol Succinate 50 mg XL Tab PO SCH ×3 (07:22→12:53)
[2017-01-12 07:29] LABS: HEMATOCRIT 36.2 % (34.0-47.0); MEAN CORPUSCULAR HEMOGLOBIN 30.2 pg (27.0-31.0); MEAN CORPUSCULAR HGB CONC 33.1 g/dL (33.0-37.0); RED CELL DISTRIBUTION WIDTH 13.1 % (11.5-14.5)
[2017-01-12] MEDS ORDERED: Midazolam 2 MG/2 ML VIAL ONE (07:29)
[2017-01-12] MEDS ORDERED: Propofol 10 mg/ml Inj (20 ML) ONE (07:30)
[2017-01-12] MEDS ORDERED: Iohexol 240 (50 ml) ONE (07:37)
[2017-01-12] MEDS ORDERED: Indomethacin 50 MG Suppository PR ONE ×3 (07:39→09:45)
[2017-01-12 07:50] LABS: PARTIAL THROMBOPLASTIN TIME 29.5 Seconds (25.6-37.1)
[2017-01-12] MEDS ORDERED: Lactated Ringer's 1,000 ML IV ONE (07:55)
[2017-01-12 08:05] LABS: ALB/GLOB RATIO 1.2 (1.0-2.1); ALKALINE PHOSPHATASE 457 U/L (38-126); ALT/SGPT 232 U/L (9-52); AST/SGOT 163 U/L (14-36); BILIRUBIN,TOTAL 0.7 mg/dl (0.2-1.3); BLOOD UREA NITROGEN 9 mg/dl (7-17); CALCIUM 9.3 mg/dL (8.4-10.2); CARBON DIOXIDE 29 mmol/L (22-30); CHLORIDE 104 mmol/L (98-107); GFR AFRICAN-AMERICAN > 60; GLUCOSE,RANDOM 106 mg/dL (65-105); POTASSIUM 3.9 MMOL/L (3.6-5.0); SODIUM 144 mmol/l (132-148); TOTAL PROTEIN 7.1 G/DL (6.3-8.2)
[2017-01-12] MEDS ORDERED: Glucagon Recombinant 1 mg Inj ONE (08:48)
--- NOTE | 2017-01-12 12:18 | CP.PCM.PN ---
Subjective - Date & Time of Evaluation Date of Evaluation: 01/12/17 Time of Evaluation: 07:05 - Subjective Subjective: Patient seen and examined with attending Dr. Martinez in MedSurg unit this morning. Patient is going for ERCP by GI, Dr. Cartagena this morning Afebrile, VS stable WNL Objective - Vital Signs/Intake and Output Vital Signs (last 24 hours): Temp Pulse Resp BP Pulse Ox 98 F 88 18 132/80 99 01/12/17 10:00 01/12/17 10:00 01/12/17 10:00 01/12/17 10:00 01/12/17 12:09 Intake and Output: 01/12/17 01/12/17 06:59 18:59 Intake Total 300 Balance 300 - Medications Medications: Current Medications Acetaminophen (Tylenol 325mg Tab) 650 mg PO Q4 PRN PRN Reason: Pain, moderate (4-7) Last Admin: 01/10/17 21:36 Dose: 650 mg Acetaminophen (Tylenol 325mg Tab) 650 mg PO Q6 PRN PRN Reason: Headache Amlodipine Besylate (Norvasc) 5 mg PO DAILY [facility] Last Admin: 01/11/17 09:34 Dose: 5 mg Famotidine (Pepcid) 20 mg IVP DAILY [facility] Last Admin: 01/11/17 09:35 Dose: 20 mg Hydromorphone HCl (Dilaudid) 1 mg IVP Q4 PRN PRN Reason: Pain, severe (8-10) Last Admin: 01/09/17 23:40 Dose: 1 mg Lactated Ringer's (Lactated Ringer's) 1,000 mls @ 125 mls/hr IV .Q8H [facility] Ketorolac Tromethamine (Toradol) 30 mg IVP Q6 PRN PRN Reason: Pain, Mild (1-3) Last Admin: 01/09/17 11:36 Dose: 30 mg Metoprolol Succinate (Toprol Xl) 50 mg PO DAILY [facility] Last Admin: 01/12/17 07:22 Dose: 50 mg Morphine Sulfate (Morphine) 4 mg IVP Q4 PRN PRN Reason: Pain, moderate (4-7) Ondansetron HCl (Zofran Inj) 4 mg IVP Q4 PRN PRN Reason: Nausea/Vomiting Last Admin: 01/08/17 14:34 Dose: 4 mg - Labs Labs: 12/06/17 06:05 01/12/17 06:05 PT 13.6 Seconds (9.8-13.1) H 01/12/17 06:05 INR 1.2 (0.9-1.2) 01/12/17 06:05 APTT 29.5 Seconds (25.6-37.1) 01/12/17 06:05 - Constitutional Appears: Non-toxic, No Acute Distress - ENT Exam ENT Exam: Mucous Membranes Moist - Respiratory Exam Respiratory Exam: Clear to Ausculation Bilateral, NORMAL BREATHING PATTERN - Cardiovascular Exam Cardiovascular Exam: REGULAR RHYTHM, +S1, +S2 - GI/Abdominal Exam GI & Abdominal Exam: Soft, Normal Bowel Sounds. absent: Distended, Guarding, Rigid, Tenderness - Neurological Exam Neurological Exam: Alert, Awake, Oriented x3 Assessment and Plan (1) Gallstone pancreatitis Assessment & Plan: Pain free LFTs trending up today for ERCP today by GI f/u GI and Surgery recommendations Status: Acute (2) Hypertension Assessment & Plan: c/w amlodipine and Metoprolol Status: Chronic (3) DVT prophylaxis Assessment & Plan: active ambulation SCDs while in bed For ERCP today morning Status: Acute
--- NOTE | 2017-01-12 14:21 | CP.PCM.PN ---
Addendum entered and electronically signed by Carolyn Copeland DO 01/12/17 15:50: Per Dr. Lara- if labs WNL & GI agreeable, ok to d/c pt home, plan for elective cholecystectomy Original Note: <Carolyn Copeland - Last Filed: 01/12/17 14:26> Subjective - Date & Time of Evaluation Date of Evaluation: 01/12/17 Time of Evaluation: 11:15 - Subjective Subjective: General surgery progress note for Dr. Lara-Carolyn Copeland, PGY-1 Pt S & E at bedside this AM. Pt reports that she went for ERCP this AM. Admits to slight headache, mild nausea. Denies emesis, F & C, abdominal pain, other complaints. Objective - Vital Signs/Intake and Output Vital Signs (last 24 hours): Temp Pulse Resp BP Pulse Ox 98 F 92 H 18 143/84 99 01/12/17 10:00 01/12/17 12:51 01/12/17 10:00 01/12/17 12:51 01/12/17 12:09 Intake and Output: 01/12/17 01/12/17 06:59 18:59 Intake Total 300 Balance 300 - Medications Medications: Current Medications Acetaminophen (Tylenol 325mg Tab) 650 mg PO Q4 PRN PRN Reason: Pain, moderate (4-7) Last Admin: 01/10/17 21:36 Dose: 650 mg Acetaminophen (Tylenol 325mg Tab) 650 mg PO Q6 PRN PRN Reason: Headache Amlodipine Besylate (Norvasc) 5 mg PO DAILY [facility] Last Admin: 01/12/17 12:51 Dose: 5 mg Famotidine (Pepcid) 20 mg IVP DAILY [facility] Last Admin: 01/12/17 11:57 Dose: 20 mg Hydromorphone HCl (Dilaudid) 1 mg IVP Q4 PRN PRN Reason: Pain, severe (8-10) Last Admin: 01/09/17 23:40 Dose: 1 mg Lactated Ringer's (Lactated Ringer's) 1,000 mls @ 125 mls/hr IV .Q8H [facility] Ketorolac Tromethamine (Toradol) 30 mg IVP Q6 PRN PRN Reason: Pain, Mild (1-3) Last Admin: 01/09/17 11:36 Dose: 30 mg Metoprolol Succinate (Toprol Xl) 50 mg PO DAILY [facility] Last Admin: 01/12/17 09:54 Dose: Not Given Morphine Sulfate (Morphine) 4 mg IVP Q4 PRN PRN Reason: Pain, moderate (4-7) Ondansetron HCl (Zofran Inj) 4 mg IVP Q4 PRN PRN Reason: Nausea/Vomiting Last Admin: 01/08/17 14:34 Dose: 4 mg - Labs Labs: 01/12/17 06:05 01/12/17 06:05 PT 13.6 Seconds (9.8-13.1) H 01/12/17 06:05 INR 1.2 (0.9-1.2) 01/12/17 06:05 APTT 29.5 Seconds (25.6-37.1) 01/12/17 06:05 - Constitutional Appears: Non-toxic, No Acute Distress - Head Exam Head Exam: ATRAUMATIC, NORMAL INSPECTION, NORMOCEPHALIC - Eye Exam Eye Exam: EOMI, Normal appearance - ENT Exam ENT Exam: Mucous Membranes Moist, Normal Exam - Neck Exam Neck Exam: Full ROM, Normal Inspection - Respiratory Exam Respiratory Exam: Clear to Ausculation Bilateral, NORMAL BREATHING PATTERN - Cardiovascular Exam Cardiovascular Exam: REGULAR RHYTHM, +S1, +S2 - GI/Abdominal Exam GI & Abdominal Exam: Soft, Normal Bowel Sounds. absent: Distended, Firm, Guarding, Rigid, Tenderness, Mass - Extremities Exam Extremities Exam: Normal Inspection. absent: Pedal Edema - Neurological Exam Neurological Exam: Alert, Awake, CN II-XII Intact, Oriented x3 - Psychiatric Exam Psychiatric exam: Normal Affect, Normal Mood - Skin Skin Exam: Dry, Intact, Normal Color, Warm Assessment and Plan - Assessment and Plan (Free Text) Assessment: 56F w/gallstone pancreatitis- much improved. ERCP this AM without visualization of stone passage after sphincterotomy- noted diffuse swelling. GI recommends pt for repeat ERCP on Tuesday AM. Plan: Plan for OR Tuesday after repeat ERCP DW pt, amenable Cont pain control Ok to advance diet as tolerated Will pre-op pt on 01/13 DW attending Dinorah, PGY-1 <Hong Lara - Last Filed: 01/14/17 15:55> Objective - Vital Signs/Intake and Output Vital Signs (last 24 hours): Temp Pulse Resp BP Pulse Ox 98.6 F 81 20 126/82 95 01/13/17 08:16 01/13/17 08:24 01/13/17 08:16 01/13/17 08:24 01/13/17 08:16 - Labs Labs: 01/13/17 05:30 01/13/17 05:30 PT 13.6 Seconds (9.8-13.1) H 01/12/17 06:05 INR 1.2 (0.9-1.2) 01/12/17 06:05 APTT 29.5 Seconds (25.6-37.1) 01/12/17 06:05 Attending/Attestation - Attestation I have personally seen and examined this patient.: Yes I have fully participated in the care of the patient.: Yes I have reviewed all pertinent clinical information, including history, physical exam and plan: Yes Notes (Text): Pt was seen and examined at bedside Agree with above note and assessment Pt is improving clinically Advance diet at tolerated LFT is trending down c/w current mx Pt wants to go home and will f/u as out pt for ERCP and Lap amol DC plan if Ok with GI physician and primary team Plan d.w pt in detail Risk and benefit explained in detail
--- NOTE | 2017-01-12 15:30 | RAD ---
PROCEDURE: Intraoperative Fluoroscopy. HISTORY: ERCP FINDINGS: Fluoroscopic assistance was provided for Total fluoroscopic time (continuous mode) utilized during the procedure: 19.8 seconds.
[2017-01-12] MEDS: Lactated Ringer's 1,000 ML IV SCH (15:56)
[2017-01-13 00:25] VITALS: RESP 20
[2017-01-13] MEDS: Lactated Ringer's 1,000 ML IV SCH ×3 (03:06→07:03)
[2017-01-13 06:42] LABS: BASO % 0.6 % (0.0-2.0); EOS # 0.2 K/uL (0.0-0.7); EOS % 3.1 % (0.0-4.0); LYMPH # 1.4 K/uL (1.0-4.3); LYMPH % 23.5 % (20.0-40.0); MEAN CELL VOLUME 90.4 fl (81.0-99.0); MEAN CORPUSCULAR HEMOGLOBIN 30.2 pg (27.0-31.0); MEAN CORPUSCULAR HGB CONC 33.4 g/dL (33.0-37.0); MONO # 0.4 K/uL (0.0-0.8); MONO % 6.3 % (0.0-10.0); NEUT # 4.1 K/uL (1.8-7.0); NEUT % 66.5 % (50.0-75.0); WHITE BLOOD COUNT 6.1 K/uL (4.8-10.8)
[2017-01-13 07:06] LABS: ALB/GLOB RATIO 1.2 (1.0-2.1); ALKALINE PHOSPHATASE 359 U/L (38-126); ALT/SGPT 164 U/L (9-52); AST/SGOT 53 U/L (14-36); BILIRUBIN,TOTAL 0.7 mg/dl (0.2-1.3); BLOOD UREA NITROGEN 9 mg/dl (7-17); CALCIUM 9.2 mg/dL (8.4-10.2); CARBON DIOXIDE 28 mmol/L (22-30); CHLORIDE 106 mmol/L (98-107); GFR AFRICAN-AMERICAN > 60; GLUCOSE,RANDOM 110 mg/dL (65-105); LIPASE 116 U/L (23-300); SODIUM 144 mmol/l (132-148); TOTAL PROTEIN 6.9 G/DL (6.3-8.2)
--- NOTE | 2017-01-13 07:23 | CP.PCM.PN ---
<Carolyn Copeland - Last Filed: 01/13/17 13:16> Subjective - Date & Time of Evaluation Date of Evaluation: 01/13/17 Time of Evaluation: 07:22 - Subjective Subjective: General surgery progress note for Dr. Lara-Carolyn Copeland, PGY-1 Pt S & E at bedside. Pt c/o headache only today. Denies N & V, F & C, ab pain. Is tolerating CLD. Spoke with GI this AM- pt cleared to go home, LFTs down trending, lipase WNL. Pt to FU as outpt for elective ERCP & cholecystectomy. Pt verbalizes understanding. Objective - Vital Signs/Intake and Output Vital Signs (last 24 hours): Temp Pulse Resp BP Pulse Ox 97.8 F 78 20 131/89 98 01/13/17 00:19 01/13/17 00:19 01/13/17 00:19 01/13/17 00:19 01/13/17 00:19 - Medications Medications: Current Medications Acetaminophen (Tylenol 325mg Tab) 650 mg PO Q4 PRN PRN Reason: Pain, moderate (4-7) Last Admin: 01/10/17 21:36 Dose: 650 mg Acetaminophen (Tylenol 325mg Tab) 650 mg PO Q6 PRN PRN Reason: Headache Amlodipine Besylate (Norvasc) 5 mg PO DAILY [facility] Last Admin: 01/12/17 12:51 Dose: 5 mg Docusate Sodium (Colace) 100 mg PO DAILY [facility] Last Admin: 01/12/17 15:55 Dose: 100 mg Famotidine (Pepcid) 20 mg IVP DAILY [facility] Last Admin: 01/12/17 11:57 Dose: 20 mg Hydromorphone HCl (Dilaudid) 1 mg IVP Q4 PRN PRN Reason: Pain, severe (8-10) Last Admin: 01/09/17 23:40 Dose: 1 mg Lactated Ringer's (Lactated Ringer's) 1,000 mls @ 125 mls/hr IV .Q8H [facility] Last Admin: 01/13/17 07:03 Dose: Not Given Ketorolac Tromethamine (Toradol) 30 mg IVP Q6 PRN PRN Reason: Pain, Mild (1-3) Last Admin: 01/09/17 11:36 Dose: 30 mg Metoprolol Succinate (Toprol Xl) 50 mg PO DAILY [facility] Last Admin: 01/12/17 09:54 Dose: Not Given Morphine Sulfate (Morphine) 4 mg IVP Q4 PRN PRN Reason: Pain, moderate (4-7) Ondansetron HCl (Zofran Inj) 4 mg IVP Q4 PRN PRN Reason: Nausea/Vomiting Last Admin: 01/08/17 14:34 Dose: 4 mg - Labs Labs: 01/13/17 05:30 01/13/17 05:30 PT 13.6 Seconds (9.8-13.1) H 01/12/17 06:05 INR 1.2 (0.9-1.2) 01/12/17 06:05 APTT 29.5 Seconds (25.6-37.1) 01/12/17 06:05 - Constitutional Appears: Non-toxic, No Acute Distress - Head Exam Head Exam: ATRAUMATIC, NORMAL INSPECTION, NORMOCEPHALIC - Eye Exam Eye Exam: EOMI, Normal appearance - ENT Exam ENT Exam: Mucous Membranes Moist, Normal Exam - Neck Exam Neck Exam: Full ROM, Normal Inspection - Respiratory Exam Respiratory Exam: Clear to Ausculation Bilateral, NORMAL BREATHING PATTERN - Cardiovascular Exam Cardiovascular Exam: REGULAR RHYTHM, +S1, +S2 - GI/Abdominal Exam GI & Abdominal Exam: Soft, Normal Bowel Sounds. absent: Distended, Firm, Guarding, Rigid, Tenderness - Extremities Exam Extremities Exam: Normal Inspection. absent: Tenderness - Neurological Exam Neurological Exam: Alert, Awake, CN II-XII Intact, Oriented x3 - Psychiatric Exam Psychiatric exam: Normal Affect, Normal Mood - Skin Skin Exam: Dry, Intact, Normal Color, Warm Assessment and Plan - Assessment and Plan (Free Text) Assessment: 56F w/gallstone pancreatitis- resolved Plan: Pt cleared to go home today per GI & surgery To FU as outpt for ERCP & elective cholecystectomy Pt verbalizes understanding. Will DW attending Dinorah, PGY-1 <Hong Lara - Last Filed: 01/14/17 15:58> Objective - Vital Signs/Intake and Output Vital Signs (last 24 hours): Temp Pulse Resp BP Pulse Ox 98.6 F 81 20 126/82 95 01/13/17 08:16 01/13/17 08:24 01/13/17 08:16 01/13/17 08:24 01/13/17 08:16 - Labs Labs: 01/13/17 05:30 01/13/17 05:30 PT 13.6 Seconds (9.8-13.1) H 01/12/17 06:05 INR 1.2 (0.9-1.2) 01/12/17 06:05 APTT 29.5 Seconds (25.6-37.1) 01/12/17 06:05 Attending/Attestation - Attestation I have personally seen and examined this patient.: Yes I have fully participated in the care of the patient.: Yes I have reviewed all pertinent clinical information, including history, physical exam and plan: Yes Notes (Text): Pt was seen and examined at bedside Agree with above note and assessment f.u as out pt Plan d.w pt in detail
[2017-01-13 08:16] VITALS: BP 126/82; PULSE 81; TEMP 98.6; O2SAT 95
[2017-01-13] MEDS: Metoprolol Succinate 50 mg XL Tab PO SCH (08:24)
--- NOTE | 2017-01-13 09:29 | CP.PCM.DIS ---
Provider - Provider Date of Admission: 01/08/17 00:15 Attending physician: Loi Martinez MD Time Spent in preparation of Discharge (in minutes): 30 Diagnosis - Discharge Diagnosis (1) Gallstone pancreatitis Status: Acute Comment: resolved on admission. Lipase x 2 WNL. LFTs still elevated, but trending down. F/u with PCP, Dr. Martinez in 1 week for LFTs f/u. F/u with GI, dr. Cartagena, and surgery, Dr. Lara as outpatient for elective procedures, repeat ERCP and Cholecystectomy. (2) Hypertension Status: Chronic Comment: controlled in current regimen Hospital Course - Lab Results Lab Results: Micro Results 01/07/17 21:30 Blood-Venous Blood Culture - Final NO GROWTH AFTER 5 DAYS 01/07/17 21:30 Blood-Venous Gram Stain - Final TEST NOT PERFORMED 01/07/17 21:45 Blood-Venous Blood Culture - Final NO GROWTH AFTER 5 DAYS 01/07/17 21:45 Blood-Venous Gram Stain - Final TEST NOT PERFORMED Most Recent Lab Values WBC 6.1 K/uL (4.8-10.8) 01/13/17 05:30 RBC 3.98 Mil/uL (3.80-5.20) 01/13/17 05:30 Hgb 12.0 g/dL (12.0-16.0) 01/13/17 05:30 Hct 36.0 % (34.0-47.0) 01/13/17 05:30 MCV 90.4 fl (81.0-99.0) 01/13/17 05:30 MCH 30.2 pg (27.0-31.0) 01/13/17 05:30 MCHC 33.4 g/dL (33.0-37.0) 01/13/17 05:30 RDW 13.0 % (11.5-14.5) 01/13/17 05:30 Plt Count 201 K/uL (130-400) 01/13/17 05:30 MPV 9.0 fl (7.2-11.7) 01/13/17 05:30 Neut % (Auto) 66.5 % (50.0-75.0) 01/13/17 05:30 Lymph % (Auto) 23.5 % (20.0-40.0) 01/13/17 05:30 [place] % (Auto) 6.3 % (0.0-10.0) 01/13/17 05:30 Eos % (Auto) 3.1 % (0.0-4.0) 01/13/17 05:30 Baso % (Auto) 0.6 % (0.0-2.0) 01/13/17 05:30 Neut # 4.1 K/uL (1.8-7.0) 01/13/17 05:30 Lymph # 1.4 K/uL (1.0-4.3) 01/13/17 05:30 [place] # 0.4 K/uL (0.0-0.8) 01/13/17 05:30 Eos # 0.2 K/uL (0.0-0.7) 01/13/17 05:30 Baso # 0.0 K/uL (0.0-0.2) 01/13/17 05:30 Neutrophils % (Manual) 83 % (42-75) H 01/07/17 21:48 Band Neutrophils % 2 % (0-2) 01/07/17 21:48 Lymphocytes % (Manual) 11 % (20-50) L 01/07/17 21:48 Monocytes % (Manual) 2 % (0-10) 01/07/17 21:48 Eosinophils % (Manual) 1 % (0-7) 01/07/17 21:48 Basophils % (Manual) 1 % (0-2) 01/07/17 21:48 Smudge Cells Present 01/07/17 21:48 Platelet Estimate Normal (NORMAL) 01/07/17 21:48 Large Platelets Present 01/07/17 21:48 Hypochromasia (manual) Slight 01/07/17 21:48 PT 13.6 Seconds (9.8-13.1) H 01/12/17 06:05 INR 1.2 (0.9-1.2) 01/12/17 06:05 APTT 29.5 Seconds (25.6-37.1) 01/12/17 06:05 pO2 26 mm/Hg (30-55) L 01/07/17 21:25 VBG pH 7.16 (7.32-7.43) L* 01/07/17 21:25 VBG pCO2 71 mmHg (40-60) H* 01/07/17 21:25 VBG HCO3 19.3 mmol/L 01/07/17 21:25 VBG Total CO2 27.5 mmol/L (22-28) 01/07/17 21:25 VBG O2 Sat (Calc) 48.0 % (40-65) 01/07/17 21:25 VBG Base Excess -4.9 mmol/L (0.0-2.0) L 01/07/17 21:25 VBG Potassium > 20.0 mmol/L (3.6-5.2) H* 01/07/17 21:25 Sodium 126.0 mmol/L (132-148) L 01/07/17 21:25 Chloride 99.0 mmol/L (98-107) 01/07/17 21:25 Glucose 148 mg/dL (65-105) H 01/07/17 21:25 Lactate 1.0 mmol/L (0.7-2.1) 01/07/17 21:25 FiO2 21.0 % 01/07/17 21:25 Crit Value Called To Dr ceicl baptiste 01/07/17 21:25 Crit Value Called By Rt 01/07/17 21:25 Crit Value Read Back Y 01/07/17 21:25 Blood Gas Notified Time 213201/07/17 21:25 Sodium 144 mmol/l (132-148) 01/13/17 05:30 Potassium 4.0 MMOL/L (3.6-5.0) 01/13/17 05:30 Chloride 106 mmol/L (98-107) 01/13/17 05:30 Carbon Dioxide 28 mmol/L (22-30) 01/13/17 05:30 Anion Gap 14 (10-20) 01/13/17 05:30 BUN 9 mg/dl (7-17) 01/13/17 05:30 Creatinine 0.8 mg/dl (0.7-1.2) 01/13/17 05:30 Est GFR ( Amer) > 60 01/13/17 05:30 Est GFR (Non-Af Amer) > 60 01/13/17 05:30 Random Glucose 110 mg/dL (65-105) H 01/13/17 05:30 Calcium 9.2 mg/dL (8.4-10.2) 01/13/17 05:30 Phosphorus 3.5 mg/dl (2.5-4.5) 01/07/17 21:48 Magnesium 1.9 MG/DL (1.6-2.3) 01/07/17 21:48 Total Bilirubin 0.7 mg/dl (0.2-1.3) 01/13/17 05:30 AST 53 U/L (14-36) H D 01/13/17 05:30 ALT 164 U/L (9-52) H D 01/13/17 05:30 Alkaline Phosphatase 359 U/L (38-126) H D 01/13/17 05:30 Total Protein 6.9 G/DL (6.3-8.2) 01/13/17 05:30 Albumin 3.8 g/dL (3.5-5.0) 01/13/17 05:30 Globulin 3.1 gm/dL (2.2-3.9) 01/13/17 05:30 Albumin/Globulin Ratio 1.2 (1.0-2.1) 01/13/17 05:30 Amylase 134 U/L (30-110) H D 01/11/17 05:35 Lipase 116 U/L (23-300) 01/13/17 05:30 Venous Blood Potassium > 20.0 mmol/L (3.6-5.2) H* 01/07/17 21:25 - Hospital Course Hospital Course: 56 yo female with PMHx of HTN presented to ED c/o abdominal pain x 1 week, Nausea and vomiting admitted with acute gallstone pancreatitis. MRCP shows CBD fullness with possible narrowing at the ampulla, 3 mm CBD stone, and small cystic duct stone.Pt was managed with NPO, and hydration. Patient was seen by GI and General surgery on admission. 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 LFTs were elevated, but trending down. LIpase normalized on admission. GI recommended repeat ERCP as outpatient to cannulate CBD. Surgery recommended elective cholecystectomy as outpatient. Patient seen and examined with Dr. Martinez this morning, stable for DC and cleared for DC by Dr. Martinez, GI, and Surgery. F/ u as outpatient. - Date & Time of H&P Date of H&P: 01/08/17 Time of H&P: 07:50 Discharge Exam - Head Exam Head Exam: ATRAUMATIC, NORMAL INSPECTION, NORMOCEPHALIC - Eye Exam Eye Exam: Normal appearance - ENT Exam ENT Exam: Mucous Membranes Moist - Respiratory Exam Respiratory Exam: Clear to PA & Lateral, NORMAL BREATHING PATTERN. absent: Rales, Rhonchi, Respiratory Distress, Stridor - Cardiovascular Exam Cardiovascular Exam: REGULAR RHYTHM, +S1, +S2 - GI/Abdominal Exam GI & Abdominal Exam: Normal Bowel Sounds, Soft. absent: Distended, Firm, Guarding, Rebound, Rigid, Tenderness - Extremities Exam Extremities exam: normal inspection Additional comments: no edema in LE, no calves tenderness noted - Neurological Exam Neurological exam: Alert, Oriented x3 - Skin Skin Exam: Dry, Intact, Normal Color Discharge Plan - Follow Up Plan Condition: STABLE Disposition: HOME/ ROUTINE Patient education suggested?: Yes Instructions: Pancreatitis (DC), Gallstones (DC) Additional Instructions: follow up with PCP in 1 week for LFTs monitoring Follow up with GI and General surgery for elective procedures as outpatient. ER precautions given Patient cleared by Dr. Martinez, Dr. Cartagena, and Dr. Lara for discharge and will f/u as outpatient. cayden con garcia doctor primario dentro de 1 semana tambien hacer cayden con gastroenterologo y cirugano Referrals: Loi Martinez MD [Staff Provider] - Vinay Cartagena MD [Staff Provider] - Hong Lara MD [Staff Provider] -
== END 2017-01-13 13:45 | disposition home or self-care (01) | DRG 193 ==
LOC: H.ER 20:23 → H.ERHOLD 01-08 00:15 → H.MEDSURG1 01-08 02:05
PROVIDERS: ADMIT Internal Medicine; ATTEND Internal Medicine
PROC: 0FJB8ZZ Inspection of Hepatobiliary Duct, Via Natural or Artificial Opening Endoscopic (ICD-10-PCS; 2017-01-12)
PROC: BF10YZZ Fluoroscopy of Bile Ducts using Other Contrast (ICD-10-PCS; principal; 2017-01-12 08:00)
DX: K85.10 Biliary acute pancreatitis without necrosis or infection (principal); K80.70 Calculus of gallbladder and bile duct without cholecystitis without obstruction; E78.00 Pure hypercholesterolemia, unspecified; I10 Essential (primary) hypertension; E78.5 Hyperlipidemia, unspecified; R04.0 Epistaxis; R10.13 Epigastric pain; R51 Headache